=== PATIENT | female | born 1955 | race Caucasian/White ===

== ENCOUNTER → 2016-09-10 18:45 | Outpatient (CLI) | payer MEDICARE ==
[2014-12-14 13:02] VITALS: BMI 35.6
[~2016-09-10 18:45] MED LIST: ACIDOPHILUS LAC1 CAP PO; ADVAIR 250/501 DISK INH; DUONEB 2.5-0.5 M3 ML UPD; DURAGESIC1 PATCH .1; DURAGESIC1 PATCH .7 TRANSDERM; ELIQUIS2.5 MG PO; IPRAT-ALBUT 0.5-3 ML UPD; K-DUR20 MEQ PO; KEPPRA XR500 MG PO; LACTINEX GRANUL1 PCK PO; MUCINEX D1 TAB.SR . PO; NEXIUM40 MG PO; NORCO 10/325 TA1 TA1 PO; PERCOCET 10/3251 TA1 PO; SEROQUEL XR150 MG PO; SEROQUEL XR200 MG PO; SINGULAIR10 MG PO; TENORMIN25 MG PO; TRIGLIDE160 MG PO
== END | disposition home or self-care (01) ==
LOC: D.MAMMO 15:45
DX: Z12.31 Encounter for screening mammogram for malignant neoplasm of breast (principal)

== ENCOUNTER 2016-10-17 05:15 | Day surgery (SDC) | payer MEDICARE ==
[2016-10-15 14:50] LABS: BASOPHILS 0.4 % (0-2); EOSINOPHILS 1.5 % (0-7); HEMATOCRIT 45.4 % (36.0-48.0); HEMOGLOBIN 14.7 g/dL (12-16); IMMATURE GRANULOCYTES 0.2 % (0-5); LYMPHOCYTES 32.9 % (15-50); MCH 29.9 pg (26.0-34.0); MCHC 32.4 g/dL (31.0-37.0); MCV 92.3 fL (80.0-100.0); MEAN PLATELET VOLUME 9.8 fL (7.4-10.4); MONOCYTES 8.4 % (2-11); NEUTROPHILS 56.6 % (40-80); RBC 4.92 10x6/uL (4.00-5.40); RDW 14.3 % (11.5-14.5); WBC 10.2 10x3/uL (4.8-10.8)
[2016-10-15 14:56] LABS: PLATELET COUNT 434 10x3/uL (130-400)
[2016-10-15 15:02] LABS: CALC OSMOLALITY 289 mosm/kg (275-300); CALCIUM 8.9 mg/dL (8.5-10.1); CARBON DIOXIDE 30.7 mmol/L (21.0-32.0); CHLORIDE - SERUM 107 mmol/L (98-107); CREATININE - SERUM 0.8 mg/dL (0.6-1.3); POTASSIUM - SERUM 4.1 mmol/L (3.5-5.1); SODIUM 142 mmol/L (136-145); UREA NITROGEN 21 mg/dL (7-18); eGFR NON AFRICAN AMERICAN 77 mL/min (90-120)
[2016-10-15 15:03] LABS: GLUCOSE 173 mg/dL (74-106)
[~2016-10-17] VITALS: Ht 165.1 cm; Wt 104.3 kg
--- NOTE | ~2016-10-17 | OP ---
PATIENT NAME: ROSIO BENJAMIN MEDICAL RECORD: [id number] :51 LOCATION:D.OPS ADMISSION DATE: SURGEON: PETROS SERNA MD DATE OF OPERATION: 10/17/2016 PREOPERATIVE DIAGNOSES: 1. Ventral incisional hernia. 2. Asthma. 3. Gastroesophageal reflux disease. 4. Arthritis. POSTOPERATIVE DIAGNOSES: 1. Ventral incisional hernia. 2. Asthma. 3. Gastroesophageal reflux disease. 4. Arthritis. PROCEDURE: Open ventral hernia repair with 13.8 x 17.8 cm Ventrio hernia patch. SURGEON: Petros Serna MD REPORT OF PROCEDURE: The patient's abdomen was prepped and draped in sterile fashion. A longitudinal incision was made through the midline overlying the area of herniation. Electrocautery was used to dissect through the subcutaneous tissues and we soon encountered the hernia sac. As we dissected down to the fascia, it was noted that there are actually multiple hernia defects present with multiple areas of weakness visible throughout the upper midline incision. As we dissected out the largest one, we were able to enter the hernia sac and entered the abdominal cavity. We freed up the anterior attachments and was able to feel up and down the midline incision. We eventually just open up the fascial bridges that are reconnecting all these and then we encountered an approximately 12 cm area of hernias. A 13.8 x 17.8 cm Ventrio hernia patch was inserted and sutured down on all 4 sides using multiple interrupted 0 Prolenes. A total of 10 different areas were sutured up to the anterior abdominal wall. The patch appeared to lie in good position. We then closed the midline fascia longitudinally using running #1 looped PDS times 2. Some of the bites of this incorporated a bite of the mesh underneath. The subcutaneous tissues were then irrigated out thoroughly with normal saline. We then reapproximated the subcutaneous tissues with multiple interrupted 3-0 Vicryls and closed the skin with running subcutaneous 5-0 Monocryl. COMPLICATIONS: None. CONDITION: Stable. ANESTHESIA: General endotracheal and local. BLOOD LOSS: Minimal. TRANSINT:[id number] Voice Confirmation ID: [id number] DOCUMENT ID: [id number] OPERATIVE REPORT [id number] ROSIO BENJAMIN PETROS SERNA MD CC: HOMERO ORO M.D. and NORMA WALLIS MD [id number] DICTATION DATE: 10/18/16 1119 CARROT TIER: 10/18/16 1843 DEP SDC 10/17/16 [facility] 069 [facility], [id number]
[~2016-10-17 05:15] MED LIST changes: +KEPPRA500 MG PO; +ROBAXIN500 MG PO
[2016-10-17] MEDS ORDERED: HYDROCODONE-APA1 TAB PO (05:57)
[2016-10-17] MEDS ORDERED: TRAZODONE HCL150 MG PO (05:57)
[2016-10-17] MEDS ORDERED: PROAIR HFA8.5 GM INH (05:58)
[2016-10-17] MEDS ORDERED: PROTONIX40 MG PO (05:58)
[2016-10-17] MEDS ORDERED: SYMBICORT 16010.2 GM INH (05:59)
[2016-10-17 06:04] VITALS: BP 123/46; Ht 165.1 cm; Wt 104.3 kg
--- NOTE | 2016-10-17 08:24 | NUR ---
0748: PT STATED NO FAMILY PRESENT.
[2016-10-17] MEDS ORDERED: CYCLOBENZAPRINE10 MG PO (09:35)
--- NOTE | 2016-10-17 10:05 | NUR ---
PRE-OP O2 ON ROOM AIR 93. PT TRANSPORTED OUT OF PACU ON 4L 95%.
--- NOTE | 2016-10-17 15:46 | NUR ---
1430--PT VOIDS WITHOUT DIFFICULTY, PT UP TO DRESS AT THIS TIME. MAGGI RAINEY 1275--DISCHARGE INSTRUCTIONS GIVEN, PT VERBALIZES UNDERSTANDING. PT OFF UNIT VIA WC. MAGGI RAINEY
== END 2016-10-17 14:55 | disposition home or self-care (01) ==
LOC: D.OPS 05:15 → D.PAN 07:30 → D.OPS 14:55
PROVIDERS: Surgery
DX: K43.2 Incisional hernia without obstruction or gangrene (principal); J45.909 Unspecified asthma, uncomplicated; K21.9 Gastro-esophageal reflux disease without esophagitis; M19.90 Unspecified osteoarthritis, unspecified site

== ENCOUNTER 2018-01-20 08:00 | Outpatient (CLI) | payer MEDICARE ==
[~2018-01-20] VITALS: Ht 165.1 cm; Wt 104.5 kg
[~2018-01-20 08:00] MED LIST changes: +CYCLOBENZAPRINE10 MG PO; +HYDROCODONE-APA1 TAB PO; +PROAIR HFA8.5 GM INH; +PROTONIX40 MG PO; +SYMBICORT 16010.2 GM INH; +TRAZODONE HCL150 MG PO
[2018-01-20 08:20] LABS: BASOPHILS 0.4 % (0-2); EOSINOPHILS 0.9 % (0-7); HEMATOCRIT 42.7 % (36.0-48.0); HEMOGLOBIN 13.7 g/dL (12-16); IMMATURE GRANULOCYTES 0.2 % (0-5); LYMPHOCYTES 46.3 % (15-50); MCH 27.1 pg (26.0-34.0); MCHC 32.1 g/dL (31.0-37.0); MCV 84.4 fL (80.0-100.0); MEAN PLATELET VOLUME 9.3 fL (7.4-10.4); MONOCYTES 6.2 % (2-11); PLATELET COUNT 454 10x3/uL (130-400); RBC 5.06 10x6/uL (4.00-5.40); RDW 18.5 % (11.5-14.5); WBC 9.2 10x3/uL (4.8-10.8)
[2018-01-20 08:30] LABS: ANION GAP 9.2 mmol/L (8-16); CALCIUM 8.9 mg/dL (8.5-10.1); CARBON DIOXIDE 27.5 mmol/L (21.0-32.0); CREATININE - SERUM 0.9 mg/dL (0.6-1.3); POTASSIUM - SERUM 4.7 mmol/L (3.5-5.1)
[2018-01-20 09:02] LABS: APTT 24.8 SECONDS (22.8-39.4); INR 1.01 (0.85-1.17); PROTIME 12.7 SECONDS (11.6-15.0)
[2018-01-20 09:18] VITALS: BP 118/77; Ht 165.1 cm; Wt 104.5 kg
== END 2018-01-20 15:00 | disposition home or self-care (01) ==
LOC: D.SP 08:00
PROVIDERS: Radiology Vascular & Interventional Radiology
DX: D72.829 Elevated white blood cell count, unspecified (principal); Z01.812 Encounter for preprocedural laboratory examination

== ENCOUNTER 2018-03-03 07:22 | Outpatient (CLI) | payer MEDICARE ==
[~2018-03-03] VITALS: Ht 165.1 cm; Wt 112.7 kg
--- NOTE | ~2018-03-03 | HEMODYNAMI ---
PATIENT:ROSIO BENJAMIN MEDICAL RECORD: [id number] : 51 LOCATION:D.CAT ADMISSION DATE: 03/03/18 Generatedon:03/03/201810:19 Patient name: ROSIO BENJAMIN Patient #: [id number] SSN: : 1955 Date of study: 03/03/2018 Page: Of Hemodynamic Procedure Report Patient Data Patient Demographics Procedure consent was obtained First Name: ROSIO Gender: Female Last Name: CASSIDY : 1955 [facility] Initial: J Age: 62 year(s) Patient #: [id number] Race: Unknown Additional ID: [id number] Contact details [address]: [address] [place] [address] State: [place] City: [place] Zip code: [address] Admission Admission Data Admission Date: 03/03/2018 Admission Time: 7:22 Admit Source: Other Height (in.): 65 BSA: 2.14 (m2) Height (cm.): 165.1 BMI: 39.99 (kg/m2) Weight (lbs.): 240.31 Weight (kg.): 109 Procedure Procedure Types Cath Procedure Diagnostic Procedure LHC LHC w/Coronaries Procedure Description Procedure Date Procedure Date: 03/03/2018 Procedure Start Time: 10:07 Procedure End Time: 10:14 Procedure Staff Name Function Justin Perdue MD Performing Physician Silver Bowens RT Scrub Gino Tom RN Nurse Rohan Redd RT Station Tender Seth Moore RT Monitor Procedure Data Cath Procedure Fluoroscopy Diagnostic fluoroscopy Total fluoroscopy Time: 1.3 time: 1.3 min min Diagnostic fluoroscopy Total fluoroscopy dose: 180 dose: 180 mGy mGy Contrast Material Contrast Material Type Amount (ml) Isovue 300 39 Entry Location Entry Primary Successful Side Size Upsize Upsize Entry Closure Siu ccessful Closure Location (Fr) 1 (Fr) 2 (Fr) Remarks Device Remarks Radial Right 6 Fr Mechanical artery Short Compression Estimated blood loss: 10 ml Diagnostic catheters Device Type Used For End Catheter Placement DIAGNOSTIC [place] 110cm 5 Procedure Fr catheter ([id number]) Procedure Complications No complications Procedure Medications Medication Administration Route Dosage 0.9% NaCl I.V. 100 ml/hr Oxygen etCO2 Nasal cannula 2 l/min Heparin Flush Bag added to field 2 bags (1000units/500ml NS) Lidocaine 2% added to field 20 Radial Cocktail added to field 1 syringe (Verapomil 2mg/Nitro 400mcg/Heparin 1500units) Versed I.V. 2 mg Fentanyl I.V. 100 mcg Versed I.V. 2 mg Fentanyl I.V. 100 mcg Radial Cocktail I.A. 1 syringe (Verapomil 2mg/Nitro 400mcg/Heparin 1500units) Versed I.V. 1 mg Hemodynamics Rest BSA: 2.14 (m2) O2 Consumption: Estimated: 229.16 (ml/min) O2 Consumption indexed : Estimated:107.08 (ml/min/m) Heart Rate: 105 (bpm) Pressure Samples Time Site Value (mmHg) Purpose Heart Use Rate(bpm) 10:09 AO 73/59(66) Snapshot 106 Snapshots Pre Cath Intra NCS Post Cath Vital Signs Time Heart Resp SPO2 etCO2 NIBP (mmHg) Rhythm Pain Sedation Rate (ipm) (%) (mmHg) Status Level (bpm) 9:34:03 105 23 90 25.6 125/87(102) NSR 0 (11) 10(A) , No pain 9:38:07 105 14 92 25.6 126/81(101) NSR 0 (11) 10(A) , No pain 9:42:11 106 15 94 25.6 120/85(98) NSR 0 (11) 10(A) , No pain 9:46:16 107 11 96 31.7 125/82(98) NSR 0 (11) 10(A) , No pain 9:50:24 105 14 96 18.8 131/84(105) NSR 0 (11) 10(A) , No pain 9:55:27 106 16 96 24.9 135/76(100) NSR 0 (11) 10(A) , No pain 9:59:39 107 16 98 16.6 122/79(100) NSR 0 (11) 10(A) , No pain 10:03:47 105 17 96 16.6 140/85(106) NSR 0 (11) 10(A) , No pain 10:07:59 105 14 93 24.1 128/82(95) NSR 0 (11) 10(A) , No pain 10:12:03 118 12 89 35.5 108/71(84) NSR 0 (11) 10(A) , No pain Medications Time Medication Route Dose Verified Delivered Reason Notes Effectiveness by by 9:34:37 0.9% NaCl I.V. 100 Gino Gino Per ml/hr Vaishali Tom physician RN RN 9:34:47 Oxygen etCO2 2 l/min Gino Gino Per Nasal Vaishali Tom physician cannula RN RN 9:34:59 Heparin Flush added 2 bags Gino Gino used for Bag to Vaishali Tom procedure (1000units/500ml RN RN NS) 9:35:11 Lidocaine 2% added 20ml Gino Gino for local to vial Lorigan Vaishali anesthetic field RAINEY RN 9:35:29 Radial Cocktail added 1 Gino Gino used for (Verapomil to syringe Vaishali Tom procedure 2mg/Nitro field RAINEY RN 400mcg/Heparin 1500units) 10:06:09 Versed I.V. 2 mg Gino Gino for sedation Vaishali Tom RN RN 10:06:20 Fentanyl I.V. 100 mcg Gino Gino for sedation Vaishali Tom RN RN 10:07:36 Versed I.V. 2 mg Gino Gino for sedation Vaishali Tom RN RN 10:07:44 Fentanyl I.V. 100 mcg Gino Gino for sedation Vaishali Tom RN RN 10:08:35 Radial Cocktail I.A. 1 Gino Justin for (Verapomil syringe Vaishali Perdue MD vasodilation 2mg/Nitro RN 400mcg/Heparin 1500units) 10:08:48 Versed I.V. 1 mg Gino Gino for sedation Vaishali Tom RN sweep press operator Log Time Note 9:02:14 Informed consent obtained and on chart 9:02:17 Admit Source: Other 9:02:30 Diagnostic Cath status Elective 9:02:31 Time tracking: Regular hours (M-F 7:00 - 5:00) 9:02:34 Plan of Care:Hemodynamics will remain stable., Cardiac rhythm will remain stable., Comfort level will be maintained., Respiratory function will remain adequate., Patient/ family verbilizes understanding of procedure., Procedure tolerated without complication., Recovers from procedure without complications.. 9:02:43 H&P Date Dictated: 03/02/2018 Within 30 days and on chart., H&P Addendum completed by physician on day of procedure. (MUST COMPLETE FOR ALL OUTPATIENTS). 9:15:08 Patient received from Pre/Post Procedure Room to CCL 3 Alert and oriented. Tansferred to table in Supine position. 9:15:10 Warm blankets applied, and heidi hugger turned on for patient comfort. 9:15:10 Correct patient and procedure confirmed by team. 9:15:12 ECG and BP/O2 sat monitors applied to patient. 9:16:50 Seth RIVERA(R) sent for patient. Start room use. 9:33:06 Vital chart was started 9:34:37 0.9% NaCl 100 ml/hr I.V. was administered by Gino Tom RN; Per physician; 9:34:47 Oxygen 2 l/min etCO2 Nasal cannula was administered by Gino Tom RN; Per physician; 9:34:59 Heparin Flush Bag (1000units/500ml NS) 2 bags added to field was administered by Gino Tom RN; used for procedure; 9:35:11 Lidocaine 2% 20ml vial added to field was administered by Gino Tom RN; for local anesthetic; 9:35:29 Radial Cocktail (Verapomil 2mg/Nitro 400mcg/Heparin 1500units) 1 syringe added to field was administered by Gino Tom RN; used for procedure; 9:40:15 Baseline sample Acquired. 9:40:19 Rhythm: sinus tachycardia 9:40:20 Full Disclosure recording started 9:40:21 Pre-procedure instructions explained to patient. 9:40:22 Pre-op teaching completed and patient verbalized understanding. 9:40:24 Family unavailable. 9:40:25 Patient NPO since Midnight. 9:40:27 Is the patient allergic to Iodine/contrast media? No. 9:40:29 Is patient on blood thinner?No 9:40:31 Patient diabetic? No. 9:44:26 Previous problem with sedation/anesthesia? No ? 9:44:28 Snore? Yes 9:44:29 Sleep apnea? Yes 9:44:30 Deviated septum? No 9:44:30 Opens mouth fully? Yes 9:44:31 Sticks out tongue? Yes 9:44:36 Airway obstruction? Yes Asthma 9:44:42 Dentures? Yes partial out 9:44:46 Pre procedure: right dorsailis pedis pulse 1+ Palpable, but thready & weak; easily obliterated 9:44:49 Modified Aman's test Ulnar < 7 seconds 9:44:51 Patient pain scale 0/10 ?. 9:44:55 IV patent on arrival in left forearm with 0.9% NaCl at [facility]. 9:44:56 Lab results completed and on chart. 9:44:59 Right Radial & Right Groin area was prepped with chlora-prep and draped in sterile fashion 9:45:00 Alarms reviewed by R. N. 9:45:01 Sharps counted by scrub and verified by R.N. 9:45:13 Use device set Radial Dx or PCI 9:45:16 ACIST Manifold (36436) opened to sterile field. 9:45:16 Tegaderm 4 x 4 (1626W) opened to sterile field. 9:45:19 ACIST Hand Control (55143) opened to sterile field. 9:45:20 ACIST Syringe (13818) opened to sterile field. 9:45:21 Medline Cath Pack ([id number]) opened to sterile field. 9:45:21 Bag Decanter (2002S) opened to sterile field. 9:45:21 DIAGNOSTIC WIRE .035 260cm J wire (280828) opened to sterile field. 9:45:22 MBrace Wrist Support ([id number]) opened to sterile field. 9:45:23 SHEATH 6Fr Prelude Radial ([id number]) opened to sterile field. 9:47:15 Patient Height : 65 inches 9:47:22 Patient Weight : 240.31 lbs 10:05:35 --------ALL STOP TIME OUT------ 10:05:36 Final Timeout: patient, procedure, and site verified with staff and physician. All members of the team are in agreement. 10:05:38 Right Radial & Right Groin site verified by team. 10:05:40 Physical assessment completed. ASA score P 2 - A patient with mild systemic disease as per Justin Perdue MD. 10:05:43 Sedation plan: IV Moderate Sedation Medication:Versed, Fentanyl 10:06:09 Versed 2 mg I.V. was administered by Gino Tom RN; for sedation; 10:06:20 Fentanyl 100 mcg I.V. was administered by Gino Tom RN; for sedation; 10:07:04 Procedure started. 10:07:09 Local anesthetic to right radial artery with Lidocaine 2% by Justin Perdue MD.INITIAL ACCESS ONLY 10:07:36 Versed 2 mg I.V. was administered by Gino Tom RN; for sedation; 10:07:44 Fentanyl 100 mcg I.V. was administered by Gino Tom RN; for sedation; 10:08:35 Radial Cocktail (Verapomil 2mg/Nitro 400mcg/Heparin 1500units) 1 syringe I.A. was administered by Justin Perdue MD; for vasodilation; 10:08:36 A 6 Fr Short sheath was inserted into the Right Radial artery 10:08:48 Versed 1 mg I.V. was administered by Gino Tom RN; for sedation; 10::57 A DIAGNOSTIC [place] 110cm 5 Fr catheter (393293) was advanced over the wire and used for Procedure. 10:09:25 LV angiography performed. 10:09:26 LV gram done using MAURICE 10:09:40 EF : 55 % 10::56 Injector settings: Ml/sec: 7, Volume: 15, 10:10:09 LCA angiography performed. 10:11:13 RCA angiography performed. 10:11:16 Catheter removed. 10:11:54 TR BAND Standard ([id number]) opened to sterile field. 10:12:14 Sheath removed intact; hemostasis achieved with Mechanical Compression to the Right Radial artery. 10:12:17 Procedure ended.(Physican Out) 10:12:39 Fluoroscopy time 01.30 minutes. 10:12:45 Fluoroscopy dose: 180 mGy 10:12:45 Flurop Dose total: 180 10:12:57 Contrast amount:Isovue 300 39ml. 10:12:58 Sharps counted by scrub and verified by R.N. 10:13:00 Insertion/operative site no bleeding no hematoma. 10:13:03 TR band inflated with 10cc of air. 10:13:06 Post Procedure Pulses reassessed and unchanged 10:13:09 Post-procedure physical assessment completed. ASA score P 2 - A patient with mild systemic disease as per Justin Perdue MD. 10:13:11 Post procedure rhythm: unchanged. 10:13:14 Estimated blood loss: 10 ml 10:13:18 Post procedure instruction explained to patient.Patient verbalizes understanding. 10:13:18 Patient needs reinforcement of post procedure teaching. 10:13:24 Procedure and supply charges have been captured, reviewed, submitted and are correct. 10:13:26 Procedure Complication : No complications 10:14:41 Vital chart was stopped 10:14:42 See physician's report for complete and final results. 10:14:46 Report given to Pre/Post Procedure Room. 10:14:49 Patient transfered to Pre/Post Procedure Room with Stretcher. 10:14:52 Procedure ended. 10:14:52 Full Disclosure recording stopped 10:14:55 End room use (Document Last) Device Usage Item Name Manufacture Quantity Catalog Number Hospital Part Current M inimal Lot# / Charge Number Stock Stock Serial# Code ACIST Manifold Acist 1 90229 233339 117461 028694 5 (76007) [employer] Tegaderm 4 x 4 3M 1 1626W 864486 517658 931539 5 (1626W) ACIST Hand Acist 1 05252 281024 136120 222890 5 Control (19783) [employer] Inc ACIST Syringe Acist 1 30268 116982 431357 293066 2 0 (11560) [employer] Inc Medline Cath Cardinal 1 [id number] 493504 58929 318426 5 Pack Health ([id number]) Bag Decanter Microtek 1 2001S 693503 01382 888370 5 (2001S) Medical Inc. DIAGNOSTIC WIRE [facility] [place] 1 889841 431325 351634 335958 3 0 .035 260cm J wire (601457) MBrace Wrist Advanced 1 140-0250-00 484863 81168 432547 5 Support Vascular ([id number]) Dynamics SHEATH 6Fr Merit 1 [id number] 669531 415396 137877 5 Prelude Radial Medical ([id number]) DIAGNOSTIC Terumo 1 08-6716 317671 445432 774906 5 [place] 110cm 5 Fr catheter (554519) TR BAND Terumo 1 [id number] 468837 241402 187745 4 0 Standard ([id number]) Signature Audit Aguila Stage Time Signature Unsigned Intra-Procedure 03/03/2018 Seth Moore 10:19:13 AM RT(R) Signatures Monitor : Seth Moore RT Signature : Date : Time : [address] [id number] [place] [address]
--- NOTE | ~2018-03-03 | OP ---
PATIENT NAME: ROSIO BENJAMIN MEDICAL RECORD: [id number] :51 LOCATION:D.CAT ADMISSION DATE: SURGEON: JESSENIA GURROLA MD DATE OF OPERATION: 03/03/2018 PROCEDURES: 1. Left heart catheterization. 2. Selective coronary angiography. 3. Left ventriculogram. INDICATION: Chest pain compatible with angina, tachycardia, shortness of breath. PROCEDURE IN DETAIL: After informed consent was obtained and after a detailed description of risks, benefits as well as alternative therapies, the patient elected to proceed with angiogram and heart catheterization. The right radial area was prepped and draped in normal sterile fashion. Right radial artery was cannulated via modified Seldinger technique with placement of 5-Khmer sheath. All catheters exchanged through this sheath. FINDINGS: Left ventriculogram was performed in standard 30-degree MAURICE view, reveals good cardiac wall motion throughout all segments. Overall ejection fraction estimated 60%. SELECTIVE CORONARY ANGIOGRAPHY: Left main, left anterior descending, left circumflex, right coronary are all smooth-walled vessels with no angiographic evidence of coronary artery disease. OVERALL IMPRESSION: 1. No angiographic evidence of coronary artery disease. 2. Normal left heart pressures. 3. Normal left ventricular systolic function. Chest pain is noncardiac in etiology. Center medical management on treatment of the tachycardia and hypertension. TRANSINT:[id number] Voice Confirmation ID: [id number] DOCUMENT ID: [id number] JESSENIA GURROLA MD at 0923 CC: [id number] DICTATION DATE: 03/03/18 1018 EMBROIDERY ASSISTANT: 03/03/18 1238 DEP CLI 03/04/[address] [address]
[2018-03-03] MEDS ORDERED: NORCO 7.5/325 T1 TA1 PO (07:58)
[2018-03-03] MEDS ORDERED: GLUCOPHAGE500 MG PO (08:01)
[2018-03-03] MEDS ORDERED: LISINOPRIL10 MG PO (08:02)
[2018-03-03 08:17] VITALS: BP 106/61; BMI 38.3
[2018-03-03 08:45] LABS: BASOPHILS 0.4 % (0-2); EOSINOPHILS 1.3 % (0-7); HEMATOCRIT 38.9 % (36.0-48.0); HEMOGLOBIN 12.5 g/dL (12-16); IMMATURE GRANULOCYTES 0.1 % (0-5); LYMPHOCYTES 49.8 % (15-50); MCH 27.5 pg (26.0-34.0); MCHC 32.1 g/dL (31.0-37.0); MCV 85.5 fL (80.0-100.0); MEAN PLATELET VOLUME 9.7 fL (7.4-10.4); MONOCYTES 8.8 % (2-11); NEUTROPHILS 39.6 % (40-80); RBC 4.55 10x6/uL (4.00-5.40); RDW 16.7 % (11.5-14.5); WBC 9.5 10x3/uL (4.8-10.8)
[2018-03-03 09:05] LABS: PLATELET COUNT 639 10x3/uL (130-400)
[2018-03-03 09:29] LABS: ANION GAP 14.8 mmol/L (8-16); CALCIUM 9.8 mg/dL (8.5-10.1); CARBON DIOXIDE 25.7 mmol/L (21.0-32.0); CREATININE - SERUM 0.9 mg/dL (0.6-1.3)
[2018-03-03 09:34] LABS: POTASSIUM - SERUM 5.5 mmol/L (3.5-5.1)
[2018-03-03 15:54] VITALS: BP 134/85
[2018-03-03 18:13] VITALS: Ht 165.1 cm; Wt 112.7 kg
[2018-03-03 22:50] VITALS: BP 125/75
[2018-03-04 01:58] VITALS: BP 103/54
[2018-03-04 06:15] VITALS: BP 117/65
[2018-03-04] MEDS ORDERED: METOPROLOL TART50 MG PO (09:19)
[2018-03-04 09:39] VITALS: BP 134/68
== END 2018-03-04 10:35 | disposition home or self-care (01) ==
LOC: D.CATH 07:22 → D.M2 12:43 → D.CATH 03-04 10:35
PROVIDERS: Internal Medicine Interventional Cardiology
DX: R07.89 Other chest pain (principal); I10 Essential (primary) hypertension; R00.0 Tachycardia, unspecified; Z01.812 Encounter for preprocedural laboratory examination

== ENCOUNTER 2018-05-20 14:02 | Emergency (ER) | payer MEDICARE ==
[~2018-05-20] VITALS: Ht 165.1 cm; Wt 109.1 kg
[~2018-05-20 14:02] MED LIST changes: +GLUCOPHAGE500 MG PO; +LISINOPRIL10 MG PO; +METOPROLOL TART50 MG PO; +NORCO 7.5/325 T1 TA1 PO
[2018-05-20 14:27] VITALS: Ht 165.1 cm; Wt 109.1 kg
[2018-05-20 14:58] LABS: BASOPHILS 0.5 % (0-2); HEMATOCRIT 42.8 % (36.0-48.0); HEMOGLOBIN 13.5 g/dL (12-16); IMMATURE GRANULOCYTES 0.3 % (0-5); LYMPHOCYTES 28.5 % (15-50); MCH 27.1 pg (26.0-34.0); MCHC 31.5 g/dL (31.0-37.0); MCV 85.9 fL (80.0-100.0); MEAN PLATELET VOLUME 10.2 fL (7.4-10.4); MONOCYTES 7.4 % (2-11); NEUTROPHILS 62.3 % (40-80); RBC 4.98 10x6/uL (4.00-5.40); WBC 11.7 10x3/uL (4.8-10.8)
[2018-05-20 15:20] LABS: ALKALINE PHOSPHATASE 34 U/L (46-116); ALT (SGPT) 16 U/L (10-68); BILIRUBIN - TOTAL 0.29 mg/dL (0.2-1.3); CALC OSMOLALITY 284 mosm/kg (275-300); CALCIUM 8.9 mg/dL (8.5-10.1); CARBON DIOXIDE 30.3 mmol/L (21.0-32.0); CHLORIDE - SERUM 103 mmol/L (98-107); CREATININE - SERUM 0.8 mg/dL (0.6-1.3); GLUCOSE 126 mg/dL (74-106); SODIUM 141 mmol/L (136-145); UREA NITROGEN 18 mg/dL (7-18); eGFR NON AFRICAN AMERICAN 76 mL/min (90-120)
[2018-05-20 15:23] LABS: PLATELET COUNT 495 10x3/uL (130-400)
[2018-05-20 15:28] LABS: AMYLASE - SERUM 26 U/L (25-115); LIPASE 103 U/L (73-393)
[2018-05-20 15:31] LABS: TROPONIN-I < 0.017 ng/mL (0.000-0.060)
[2018-05-20 18:07] LABS: APPEARANCE CLEAR (CLEAR); BILIRUBIN NEGATIVE (NEGATIVE); COLOR YELLOW (YELLOW); GLUCOSE NEGATIVE (NEGATIVE); KETONE NEGATIVE (NEGATIVE); NITRITE NEGATIVE (NEGATIVE); PROTEIN NEGATIVE (NEGATIVE); SPECIFIC GRAVITY 1.015 (1.005-1.020); UROBILINOGEN NORMAL (NORMAL)
[2018-05-20 18:15] LABS: BACTERIA MANY /hpf (NONE SEEN); EPITHELIAL CELLS 0-5 /hpf (0-5); RED CELLS - URINE 0-5 /hpf (0-5)
[2018-05-20] MEDS ORDERED: ZOFRAN ODT4 MG/UDTAB PO (18:18)
[2018-05-20 19:22] VITALS: BP 127/75
== END 2018-05-20 19:22 | disposition home or self-care (01) ==
LOC: D.ER 14:02
PROVIDERS: Family Medicine
DX: R11.2 Nausea with vomiting, unspecified (principal); R53.81 Other malaise; R53.83 Other fatigue; C95.91 Leukemia, unspecified, in remission; G40.909 Epilepsy, unspecified, not intractable, without status epilepticus; E11.9 Type 2 diabetes mellitus without complications; I10 Essential (primary) hypertension

== ENCOUNTER 2018-05-30 14:32 | Emergency (ER) | payer MEDICARE ==
[~2018-05-30] VITALS: Ht 165.1 cm; Wt 104.5 kg
[~2018-05-30 14:32] MED LIST changes: +ZOFRAN ODT4 MG/UDTAB PO
[2018-05-30 14:38] VITALS: Ht 165.1 cm; Wt 104.5 kg
[2018-05-30 14:57] LABS: BASOPHILS 0.5 % (0-2); HEMOGLOBIN 13.9 g/dL (12-16); LYMPHOCYTES 39.5 % (15-50); MCH 26.8 pg (26.0-34.0); MCHC 31.6 g/dL (31.0-37.0); MCV 84.8 fL (80.0-100.0); MEAN PLATELET VOLUME 9.8 fL (7.4-10.4); MONOCYTES 9.3 % (2-11); NEUTROPHILS 48.7 % (40-80); RBC 5.19 10x6/uL (4.00-5.40); RDW 15.1 % (11.5-14.5); WBC 9.5 10x3/uL (4.8-10.8)
[2018-05-30 15:09] LABS: ALBUMIN 3.4 g/dL (3.4-5.0); ANION GAP 16.7 mmol/L (8-16); BILIRUBIN - TOTAL 0.34 mg/dL (0.2-1.3); CALCIUM 9.8 mg/dL (8.5-10.1); CARBON DIOXIDE 27.5 mmol/L (21.0-32.0); POTASSIUM - SERUM 4.2 mmol/L (3.5-5.1); PROTEIN - SERUM 7.6 g/dL (6.4-8.2)
[2018-05-30 15:10] LABS: PLATELET COUNT 651 10x3/uL (130-400)
[2018-05-30 18:48] LABS: APPEARANCE CLEAR (CLEAR); BILIRUBIN NEGATIVE (NEGATIVE); COLOR YELLOW (YELLOW); GLUCOSE NEGATIVE (NEGATIVE); KETONE NEGATIVE (NEGATIVE); NITRITE NEGATIVE (NEGATIVE); PROTEIN NEGATIVE (NEGATIVE); SPECIFIC GRAVITY 1.015 (1.005-1.020); UROBILINOGEN NORMAL (NORMAL)
[2018-05-30 18:49] LABS: RED CELLS - URINE RARE /hpf (0-5)
[2018-05-30] MEDS ORDERED: MACROBID100 MG PO (20:03)
[2018-05-30] MEDS ORDERED: ZOFRAN4 MG PO (20:03)
[2018-05-30 20:18] VITALS: BP 123/65
== END 2018-05-30 20:18 | disposition home or self-care (01) ==
LOC: D.ER 14:32
PROVIDERS: Emergency Medicine
DX: N39.0 Urinary tract infection, site not specified (principal); R19.7 Diarrhea, unspecified; E11.9 Type 2 diabetes mellitus without complications

== ENCOUNTER → 2018-06-30 17:19 | Outpatient (CLI) | payer MEDICARE ==
[2018-05-30 14:38] VITALS: BMI 38.3
[~2018-06-30 17:19] MED LIST changes: +LEVAQUIN750 MG PO; +MACROBID100 MG PO; +PERCOCET 10-321 EAC1 PO; +TOPROL XL50 MG PO; +ZOFRAN4 MG PO
== END | disposition home or self-care (01) ==
LOC: D.LABREF 17:19
DX: M19.012 Primary osteoarthritis, left shoulder (principal); Z11.8 Encounter for screening for other infectious and parasitic diseases

== ENCOUNTER 2018-07-02 09:32 | Inpatient (IN) | payer MEDICARE ==
[~2018-07-02] VITALS: Ht 165.1 cm; Wt 109.1 kg
[~2018-07-02 09:32] MED LIST changes: -LEVAQUIN750 MG PO; -PERCOCET 10-321 EAC1 PO; -TOPROL XL50 MG PO
[2018-07-15] MEDS ORDERED: LISINOPRIL10 MG PO (14:33)
[2018-07-15] MEDS ORDERED: TOPROL XL50 MG PO (14:34)
[2018-07-15] MEDS ORDERED: METOPROLOL TART50 MG PO (14:46)
[2018-07-17 09:20] LABS: BASOPHILS 0.1 % (0-2); EOSINOPHILS 0 % (0-7); HEMATOCRIT 39.6 % (36.0-48.0); HEMOGLOBIN 12.3 g/dL (12-16); IMMATURE GRANULOCYTES 0.2 % (0-5); LYMPHOCYTES 24.4 % (15-50); MCH 25.9 pg (26.0-34.0); MCHC 31.1 g/dL (31.0-37.0); MCV 83.5 fL (80.0-100.0); MONOCYTES 10.4 % (2-11); NEUTROPHILS 64.9 % (40-80); PLATELET COUNT 443 10x3/uL (130-400); RBC 4.74 10x6/uL (4.00-5.40); RDW 16.5 % (11.5-14.5); WBC 12.2 10x3/uL (4.8-10.8)
[2018-07-17 09:27] LABS: APTT 26.6 SECONDS (22.8-39.4); CALC OSMOLALITY 284 mosm/kg (275-300); CARBON DIOXIDE 28.8 mmol/L (21.0-32.0); CHLORIDE - SERUM 104 mmol/L (98-107); CREATININE - SERUM 0.8 mg/dL (0.6-1.3); INR 1.08 (0.85-1.17); POTASSIUM - SERUM 4.5 mmol/L (3.5-5.1); PROTIME 13.5 SECONDS (11.6-15.0); SODIUM 141 mmol/L (136-145); UREA NITROGEN 23 mg/dL (7-18); eGFR NON AFRICAN AMERICAN 76 mL/min (90-120)
[2018-07-17 09:28] LABS: GLUCOSE 95 mg/dL (74-106)
[2018-07-17 14:21] LABS: APPEARANCE HAZY (CLEAR); BILIRUBIN NEGATIVE (NEGATIVE); COLOR YELLOW (YELLOW); GLUCOSE NEGATIVE (NEGATIVE); KETONE NEGATIVE (NEGATIVE); NITRITE NEGATIVE (NEGATIVE); PH 5.5 (5.0-6.0); PROTEIN NEGATIVE (NEGATIVE); SPECIFIC GRAVITY 1.025 (1.005-1.020); UROBILINOGEN NORMAL (NORMAL)
[2018-07-17 14:26] LABS: BACTERIA MODERATE /hpf (NONE SEEN); CALCIUM OXALATE CRYSTALS >50 /hpf (NONE SEEN); EPITHELIAL CELLS OCC /hpf (0-5); RED CELLS - URINE RARE /hpf (0-5)
[2018-07-20 15:07] VITALS: BP 133/87; BMI 42.7
--- NOTE | 2018-07-20 21:20 | NUR ---
RECIEVED TO FLOOR, DENIES PAIN AT THIS TIME. PT REQUESTS A COKE AND SOME FOOD. ABLE TO MOVE EXTREMETIES, BUT DENIES ADEQUATE FEELING. STATES LAST BE WAS 07/19/18. WILL CONTINUE TO MONITOR.
[2018-07-20 21:24] VITALS: BP 118/82
[2018-07-21] VITALS (7 sets, daily range): BP systolic 108–157; BP diastolic 64–84; Ht 165.1 cm; Wt 109.1 kg
--- NOTE | 2018-07-21 04:06 | NUR ---
RESTING IN BED RESPRATIONS EVEN AND UNLABORD CALL LIGHT IN REACH NO S/S OF DISTRESS CHECKED OFTEN FOR NEEDS AND SAFETY.
--- NOTE | 2018-07-21 04:29 | NUR ---
IV DRESSING CHANGED. FLUSHES EASILY, W/O COMPLAINTS. DENIES NEEDS AT THIS TIME.
[2018-07-21 06:46] LABS: HEMATOCRIT 36.8 % (36.0-48.0); HEMOGLOBIN 11.4 g/dL (12-16); MCH 26.4 pg (26.0-34.0); MCV 85.2 fL (80.0-100.0); MEAN PLATELET VOLUME 10.2 fL (7.4-10.4); RBC 4.32 10x6/uL (4.00-5.40); RDW 16.8 % (11.5-14.5); WBC 13.1 10x3/uL (4.8-10.8)
--- NOTE | 2018-07-21 11:20 | NUR ---
PT SITTING UP IN CHAIR AT BEDSIDE. REPORTS PAIN 3/10 AT THIS TIME. DENIES FURTHER NEEDS AT THIS TIME. CL WITHIN REACH. ENCOURAGED TO CALL WITH NEEDS. WILL CONTINUE TO MONITOR.
[2018-07-22 01:33] VITALS: BP 148/74
[2018-07-22 04:50] LABS: HEMOGLOBIN 11.8 g/dL (12-16); MCHC 31.1 g/dL (31.0-37.0); MCV 83.9 fL (80.0-100.0); MEAN PLATELET VOLUME 10.4 fL (7.4-10.4); RBC 4.53 10x6/uL (4.00-5.40); RDW 16.9 % (11.5-14.5); WBC 13.9 10x3/uL (4.8-10.8)
[2018-07-22 06:05] VITALS: BP 124/73
--- NOTE | 2018-07-22 07:15 | NUR ---
REC'D IN WALKING ROUND AWAKE AND ALERT. RESP EVEN AND UNLABORED WITH NO DISTRESS NOTED. CAN EXPRESS NEEDS AND WANTS WITH NO C/O NOTED OR VOICED. ASSESSMENT COMPLETED. SLING NOTED TO RIGHT ARM. C/L IN REACH AT BEDSIDE.
[2018-07-22 08:26] VITALS: BP 172/71
[2018-07-22] MEDS ORDERED: PERCOCET 10-321 EAC1 PO (08:55)
--- NOTE | 2018-07-22 09:44 | NUR ---
PT WAS MEDICATE WITH NORCO FOR C/O LEFT SHOULDER PAIN MEDICATED WITH NORCO PER ORDERS. C/L IN REACH AT BEDSIDE
[2018-07-22] MEDS ORDERED: LEVAQUIN750 MG PO (10:44)
--- NOTE | 2018-07-22 11:31 | MORECARE ---
CASE MANAGEMENT DISCHARGE SUMMARY PATIENT: ROSIO BENJAMIN UNIT: [id number] ADM DATE: 07/20/18 AGE: 62 : [birth year] SEX: F ROOM/BED: D.2208 AUTHOR: ADAMS FERRERA PHYSICIAN: REFERRING PHYSICIAN: MANUEL CORRIGAN MD DATE OF SERVICE: 07/22/18 Discharge Plan Patient Name: ROSIO BENJAMIN [facility] [facility] 1955 Planned Disposition: Home with Home Health Anticipated Discharge Date: Discharge Date: Expected LOS: Initial Reviewer: [email or web address] Initial Review Date: 07/20/2018 Generated: 07/22/18 12:31 pm Patient Name: ROSIO BENJAMIN Page [id number] at 1131 All edits/amendments must be made on the electronic document DICTATION DATE: 07/22/18 113 ATMOSPHERIC CHEMIST: MATHEW 07/22/18 1130 RPT#: [id number] DC DATE: STATUS: ADM IN [facility] [address] [place] [address] END OF REPORT
--- NOTE | 2018-07-22 11:45 | MORECARE ---
CASE MANAGEMENT DISCHARGE SUMMARY PATIENT: ROSIO BENJAMIN UNIT: [id number] ADM DATE: 07/20/18 AGE: 62 : 53 SEX: F ROOM/BED: D.2207 AUTHOR: MAISHA,DOC PHYSICIAN: REFERRING PHYSICIAN: MANUEL CORRIGAN MD DATE OF SERVICE: 07/22/18 Discharge Plan Patient Name: ROSIO BENJAMIN Facility: [facility]:[place] : 1955 Planned Disposition: Home with Home Health Anticipated Discharge Date: Discharge Date: Expected LOS: Initial Reviewer: [email or web address] Initial Review Date: 07/20/2018 Generated: 07/22/18 12:44 pm Comments DCP- Discharge Planning Updated by [email or web address]: Mary Gilliam on 07/22/18 10:[address] Patient Name: ROSIO BENJAMIN Admission Status: Elective Accout number: [id number] Admission Date: 07-20-2018 : 1955 Admission Diagnosis: Attending: MANUEL CORRIGAN Current LOS: 2 Anticipated DC Date: Planned Disposition: Home with Home Health Primary Insurance: MEDICARE A & B Discharge Planning Comments: CM met with patient to complete initial dc planning assessment. CM educated patient on the CM role and verbal consent given by patient to complete assessment. Patient lives at home, where she is independent with her care. At discharge patient plans to return home and feels this is a safe discharge. CM discussed availability of home health, rehab services, and medical equipment. Alvino her cousin will be the one to drive her home. She will be set up with [employer], ABDON signed and placed in chart. Patient has a grabber, cane, walker at home. Patient denied known discharge needs at this time. CM will continue to follow and will assist as needed with dc plans/needs. Certified Nursing Assistant Instructor: Mary Gilliam DCPIA - Discharge Planning Initial Assessment Updated by [email or web address]: Mary Gilliam on 07/22/18 11:31 am * Is the patient Alert and Oriented? Yes * How many steps to enter\exit or inside your home? * PCP [facility] * Pharmacy [facility] * Preadmission Environment Home Alone * ADLs Independent * Equipment Cane Other Walker * Other Equipment GRABBER * List name and contact numbers for known caregivers / representatives who currently or will assist patient after discharge: MILENA TAPIA [phone] * Verbal permission to speak to the caregivers and representatives has been obtained from the patient. N/A * Community resources currently utilized None * Additional services required to return to the preadmission environment? Yes * Can the patient safely return to the preadmission environment? Yes * Has this patient been hospitalized within the prior 30 days at any hospital? No Last DP export: 07/22/18 10:31 a Patient Name: ROSIO BENJAMIN Page 41115 at 1145 All edits/amendments must be made on the electronic document DICTATION DATE: 07/22/18 114 JELLY FILTER TENDER: MATHEW 07/22/18 1144 RPT#: [id number] DC DATE: STATUS: ADM IN [facility] [address] [place] [address] END OF REPORT
[2018-07-22 12:39] VITALS: BP 129/63
--- NOTE | 2018-07-22 12:48 | NUR ---
DC HOME AT THIS TIME WITH UNDERSTANDING OF DC ORDERS. IV DC. FAMILY AT BEDSIDE.NO C/O NOTED OR VOICED. C/L IN REACH AT BEDSIDE.
--- NOTE | 2018-07-22 17:50 | MORECARE ---
CASE MANAGEMENT DISCHARGE SUMMARY PATIENT: ROSIO BENJAMIN UNIT: [id number] ADM DATE: 07/20/18 AGE: 62 : 51 SEX: F ROOM/BED: D.2201 AUTHOR: MAISHA,DOC PHYSICIAN: REFERRING PHYSICIAN: MANUEL CORRIGAN MD DATE OF SERVICE: 07/22/18 Discharge Plan Patient Name: ROSIO BENJAMIN Facility: [facility]:[place] : 1955 Planned Disposition: Home with Home Health Anticipated Discharge Date: Discharge Date: 07/22/2018 Expected LOS: 0 Initial Reviewer: [email or web address] Initial Review Date: 07/20/2018 Generated: 07/22/18 6:50 pm Comments DCP- Discharge Planning Updated by [email or web address]: Mary Gilliam on 07/22/18 10:[address] Patient Name: ROSIO BENJAMIN Admission Status: Elective Accout number: [id number] Admission Date: 07-20-2018 : 1955 Admission Diagnosis: Attending: MANUEL CORRIGAN Current LOS: 2 Anticipated DC Date: Planned Disposition: Home with Home Health Primary Insurance: MEDICARE A & B Discharge Planning Comments: CM met with patient to complete initial dc planning assessment. CM educated patient on the CM role and verbal consent given by patient to complete assessment. Patient lives at home, where she is independent with her care. At discharge patient plans to return home and feels this is a safe discharge. CM discussed availability of home health, rehab services, and medical equipment. Alvino her cousin will be the one to drive her home. She will be set up with [employer], ABDON signed and placed in chart. Patient has a grabber, cane, walker at home. Patient denied known discharge needs at this time. CM will continue to follow and will assist as needed with dc plans/needs. Glass Toughening Operator: Mary Gilliam DCPIA - Discharge Planning Initial Assessment Updated by [email or web address]: Mayr Gilliam on 07/22/18 11:31 am * Is the patient Alert and Oriented? Yes * How many steps to enter\exit or inside your home? * PCP [facility] * Pharmacy [facility] * Preadmission Environment Home Alone * ADLs Independent * Equipment Cane Other Walker * Other Equipment GRABBER * List name and contact numbers for known caregivers / representatives who currently or will assist patient after discharge: MILENA TAPIA [phone] * Verbal permission to speak to the caregivers and representatives has been obtained from the patient. N/A * Community resources currently utilized None * Additional services required to return to the preadmission environment? Yes * Can the patient safely return to the preadmission environment? Yes * Has this patient been hospitalized within the prior 30 days at any hospital? No Last DP export: 07/22/18 10:45 a Patient Name: ROSIO BENJAMIN Page 09384 at 1750 All edits/amendments must be made on the electronic document DICTATION DATE: 07/22/181748 COATER SLATE: MATHEW 07/22/181748 RPT#: [id number] DC DATE:07/22/18 STATUS: DIS IN [facility] [address] [place] [address] END OF REPORT
--- NOTE | 2018-07-27 10:47 | OP ---
PATIENT NAME: ROSIO BENJAMIN MEDICAL RECORD: [id number] :[birth year] LOCATION:D.[facility] [place] ADMISSION DATE:07/20/18 SURGEON: MANUEL CORRIGAN MD DATE OF OPERATION: 07/20/2018 PREOPERATIVE DIAGNOSIS: Degenerative arthritis of the left shoulder. POSTOPERATIVE DIAGNOSIS: Degenerative arthritis of the left shoulder. PROCEDURE: Left total shoulder arthroplasty. SURGEON: Manuel Corrigan MD ELECTRONICS PROCESSING SUPERVISOR: Tristan Aguero. INTRAOPERATIVE COMPLICATIONS: None. SUMMARY OF PATHOLOGIC FINDINGS: The patient had extensive glenohumeral arthrosis. IMPLANTS USED: Arthrex Univers VaultLock glenoid size medium, Arthrex Univers Warroad stem size 10, and Arthrex Univers humeral head size 46 x 18. OPERATIVE SUMMARY IN DETAIL: After obtaining the appropriate preoperative orthopedic surgery consent as well as anesthetic consultation, evaluation and clearance, the patient was brought to the operating room and placed on the operating table in supine position. After general laryngeal mask airway was administered, the patient was placed in the beach chair position. All pressure points were well padded. She was held firmly to the operating table using the vacuum pack suction system. Left upper extremity and shoulder were then prepped and draped in routine sterile fashion. The arm was held in the Trimano arm holding device. Deltopectoral incision was taken down to the level of cephalic vein, which was identified and protected throughout the entire case. Deltoid was then retracted laterally over the humeral head where the conjoined tendon was gently retracted medially. Subscapularis was taken down in a peel method. The biceps tendon was cut and saved for later biceps tenodesis. Humeral head was dislocated through the incision. Humeral head cut was made using the Arthrex Univers humeral head cutting guide system. Serial and sequential reaming and broaching were done for a size 10 Univers Warroad stem. The trial was put into place with the humeral head protection plate. The glenoid was then approached. Circumferential labrectomy was followed by reaming and preparation for the VaultLock system. After copious irrigation and drying the VaultLock was cemented into place. All excess cement was removed. Excellent fixation was achieved. After the cement was allowed to harden, attention was returned to the proximal humerus. Trial was taken out and the final size 10 Univers Warroad stem was put into place. Inferior and superior lock were secured into place followed by placing the 46 x 18 offset humeral head at the appropriate position for maximal osseous coverage. Having completed the shoulder reduced, taken through range of motion and found to be appropriately stable. Subscapularis was then reapproximated to the lesser tuberosity in a transosseous fashion with a biceps tenodesis. The wound was copiously irrigated. At this point, the final incision was closed by Tristan Aguero with #1 Vicryl, 2-0 Vicryl and skin evelin. Sterile dressings were applied. The patient was placed in a slingshot sling and then awakened and taken to recovery room in stable condition. All final needle and sponge counts were correct. OPERATIVE REPORT [id number] ROSIO BENJAMIN TRANSINT:[id number] Voice Confirmation ID: [id number] DOCUMENT ID: [id number] SHEKHAR JENSEN, MANUEL VALENTIN at 1047 CC: [id number] DICTATION DATE: 07/24/1831 HISTORIAN RESEARCH ASSISTANT: 07/24/18 1003 DIS IN 07/22/18 [facility] [address] [place] [address]
== END 2018-07-22 12:50 | disposition home health service (06) | DRG 483 ==
LOC: D.SDCHOLD 07-20 13:20 → D.MS 07-20 20:15
PROVIDERS: ADMIT Orthopaedic Surgery
PROC: 0RRK0JZ Replacement of Left Shoulder Joint with Synthetic Substitute, Open Approach (ICD-10-PCS; principal; 2018-07-20 15:00)
DX: M19.012 Primary osteoarthritis, left shoulder (principal); E11.9 Type 2 diabetes mellitus without complications; I10 Essential (primary) hypertension

== ENCOUNTER 2018-07-16 07:59 | Day surgery (SDC) | payer MEDICARE ==
[~2018-07-16] VITALS: Ht 165.1 cm; Wt 109.3 kg
[~2018-07-16 07:59] MED LIST changes: +TOPROL XL50 MG PO
[2018-07-16 08:28] LABS: HEMATOCRIT 40.8 % (36.0-48.0); MCH 26.5 pg (26.0-34.0); MCHC 31.9 g/dL (31.0-37.0); MCV 83.3 fL (80.0-100.0); MEAN PLATELET VOLUME 9.7 fL (7.4-10.4); RBC 4.9 10x6/uL (4.00-5.40); RDW 16.6 % (11.5-14.5); WBC 10.2 10x3/uL (4.8-10.8)
[2018-07-16 08:44] LABS: ANION GAP 11.9 mmol/L (8-16); CALCIUM 8.8 mg/dL (8.5-10.1); CARBON DIOXIDE 30.2 mmol/L (21.0-32.0); CREATININE - SERUM 0.9 mg/dL (0.6-1.3); POTASSIUM - SERUM 4.1 mmol/L (3.5-5.1)
[2018-07-16 09:00] VITALS: Ht 165.1 cm; Wt 109.3 kg
--- NOTE | 2018-07-16 11:50 | NUR ---
REC'D FROM RR. NO ONE AT BEDSIDE. RELATES WILL HAVE TO CALL A [facility] FOR TRANSPORT. FL TRAY BROUGHT TO PT.
--- NOTE | 2018-07-16 12:20 | NUR ---
SUKUMAR THE HYDROELECTRIC STATION CHIEF FOR THE SACAL STIMILATOR IN TEACHING PATIENT THE USE OF THE STIMULATOR. TOLERATING FL DIET.
--- NOTE | 2018-07-16 12:30 | NUR ---
AMBULATED TO THE BATHROOM AND VOIDED WITHOUT DIFFICULTY.
--- NOTE | 2018-07-16 12:41 | OP ---
PATIENT NAME: ROSIO BENJAMIN MEDICAL RECORD: [id number] :51 LOCATION:D.[facility] ADMISSION DATE: SURGEON: LOLA YOO MD DATE OF OPERATION: 07/16/2018 SURGEON: Lola Yoo MD ANESTHESIA: TIVA by Patel Wilson CRNA. DIAGNOSES: Urge urinary incontinence, urge fecal incontinence. PROCEDURE: InterStim stage I, right S3. FINDINGS: Good hermann and toe flexion response from the right S3 foramen. The patient felt the stimulation in the vaginal area. BLOOD LOSS: None. CLINICAL HISTORY: This is a 62-year-old female, who has an ongoing issue with urge urinary incontinence as well as fecal incontinence. These episodes occur on an almost daily basis. For the urinary incontinence, I tried Myrbetriq 25 mg per day with the patient. She said it did not work at all. In order to try to control both the bladder and the bowel, InterStim would be the most promising option. SHE IS ALLERGIC TO SULFA, PENICILLIN, AND SHELLFISH. She was given Levaquin IV carbon printer to the OR. DESCRIPTION OF PROCEDURE: The patient was placed in prone position on the OR table. She was then given IV sedation. She was prepped and draped. Using fluoroscopy, we found the location of the S3 foramina on both sides. The spinal needles were placed on the skin to identify the location of the role sacral foramina. These were all marked with marking pen. The skin overlying the S2 foramen was infiltrated with lidocaine 1% with epinephrine. The spinal needles were then inserted on both sides. They entered into the S3 foramen on each side. We tested both of these. On the left side, she had a hermann response and toe flexion response. She felt the stimulation in the rectum. On the right side, far lower voltages were required as there was far more sensitive. Again, the hermann and great toe flexion responses were seen. She felt the stimulation in the vagina. We therefore went with the right side. The left-sided needle was removed entirely. A small incision was made on either side of the needle. The stylet of the spinal needle was removed. We inserted an extra-long stylet through the lumen of the needle. Once the extra-long stylet was in position, the spinal needle was removed entirely. Over the extra-long stylet, a trocar dilator was inserted. There was a radiopaque marker at the tip of the trocar sheath. This was placed at the midpoint of the sacral bone. The extra-long stylet and the trocar were then removed, leaving the sheath in place. Through the lumen of the sheath, we placed our permanent electrode. The permanent electrode has a slight bend to the tip and we placed the band so that it ran from medial to lateral. We then tested each of the channels in turn. Channel 0 had the greatest sensitivity. We went down towards channel 2, the sensitivity progressively decreased. However, all of the channels did provide a response. We then made a 2-cm incision at the level of the right iliac crest and a subcutaneous tunnel was made here using finger dissection. The tunneling device was used to bring the permanent electrode distal end through this new incision. Here, it was connected to the temporary test electrode. Four locking screws were tightened down using a torque-limiting screwdriver. The connection was OPERATIVE REPORT [id number] ROSIO BENJAMIN made secure and watertight using a silicone sheath. The sheath was tied down on each end with 2-0 Prolene ties to prevent ingress of water. The tunneling device was again used to bring the end of the temporary test electrode out of the sacral skin just to the left of the midline. The 2-cm right iliac crest wound had closure in 2 layers. The first layer just brought the subcutaneous fat back together using 3-0 Vicryl. Ad were then used to close all the incisions. Dressings were applied. The patient was then brought back to the preoperative holding area. The [employer] mechanical service representative will instruct the patient on use of the stimulator controls. I will see her back in 1 week's time to remove the ad and to check on her voiding symptoms as well as urge fecal incontinence. TRANSINT:[id number] Voice Confirmation ID: [id number] DOCUMENT ID: [id number] LOLA YOO MD at 1241 CC: [id number] DICTATION DATE: 07/16/18 1206 PROTECTIVE SIGNAL INSTALLER: 07/16/18 1231 REG [facility] [address] [place] [address]
--- NOTE | 2018-07-16 13:25 | NUR ---
WRITTEN AND VERBAL DC INST GIVEN TO PT. VERBALIZED UNDERSTANDING.
--- NOTE | 2018-07-16 13:50 | NUR ---
DC'D HOME VIA [facility]AXI. TAKEN TO [facility] VIA WC. STABLE AT TIME OF DC.
== END 2018-07-16 13:50 | disposition home or self-care (01) ==
LOC: D.OPS 07:59 → D.PAN 09:30 → D.OPS 09:30
PROVIDERS: Anesthesiology
DX: N39.41 Urge incontinence (principal); R15.2 Fecal urgency

== ENCOUNTER 2018-08-04 05:58 | Day surgery (SDC) | payer MEDICARE ==
[~2018-08-04] VITALS: Ht 165.1 cm; Wt 108.9 kg
[~2018-08-04 05:58] MED LIST changes: +LEVAQUIN750 MG PO; +PERCOCET 10-321 EAC1 PO
[2018-08-04 06:23] LABS: HEMATOCRIT 37.9 % (36.0-48.0); HEMOGLOBIN 11.9 g/dL (12-16); MCH 26.4 pg (26.0-34.0); MCHC 31.4 g/dL (31.0-37.0); MCV 84.2 fL (80.0-100.0); MEAN PLATELET VOLUME 9.7 fL (7.4-10.4); RBC 4.5 10x6/uL (4.00-5.40); WBC 9.6 10x3/uL (4.8-10.8)
[2018-08-04 06:35] LABS: CALC OSMOLALITY 292 mosm/kg (275-300); CALCIUM 8.7 mg/dL (8.5-10.1); CARBON DIOXIDE 30.3 mmol/L (21.0-32.0); CHLORIDE - SERUM 105 mmol/L (98-107); CREATININE - SERUM 0.8 mg/dL (0.6-1.3); GLUCOSE 137 mg/dL (74-106); POTASSIUM - SERUM 4.2 mmol/L (3.5-5.1); SODIUM 144 mmol/L (136-145); UREA NITROGEN 25 mg/dL (7-18); eGFR NON AFRICAN AMERICAN 76 mL/min (90-120)
--- NOTE | 2018-08-04 08:12 | NUR ---
[address] YOO. INFORMED OF ELEVATED BUN 25, & PLATELETS 691. STATES OK FOR SURGERY. NO ORDERS RECEIVED. Robert BELTRE R.N.
[2018-08-04 08:22] VITALS: Ht 165.1 cm; Wt 108.9 kg
--- NOTE | 2018-08-04 11:37 | OP ---
PATIENT NAME: ROSIO BENJAMIN MEDICAL RECORD: [id number] :[birth year] [facility] ADMISS[facility] DATE: SURGEON: LOLA YOO MD DATE OF OPERATION: 08/04/2018 SURGEON: MD rolo Gutierrez. ANESTHESIA: TIVA by Jacques Nixon CRNA DIAGNOSIS: Urge urinary incontinence, fecal incontinence. PROCEDURE: InterStim stage II, placed in the right iliac crest region. FINDINGS: Incisions are intact with no signs of infection. SPECIMENS: None. BLOOD LOSS: Minimal. CLINICAL HISTORY: This is a 62-year-old female, who has urge urinary incontinence that has not responded to any medications. She also has urge fecal incontinence. We performed an InterStim stage I trial on her about 3 weeks ago. She has had an excellent response to the treatment and she is no longer incontinent of either bowel or bladder. She comes to have the permanent pacemaker inserted, which is stage II. SHE IS ALLERGIC TO PENICILLIN AND SULFA WELL SHRIMP. She was given Levaquin kindergarten instructional assistant to the OR. DESCRIPTION OF PROCEDURE: The patient was placed in the prone position on the table. She was given IV sedation. She was prepped and draped. The old incision was reopened at the right iliac crest region. It was about 1 inch in length. With blunt dissection of the fingers, I got down to the gluteal fascia and made a subcutaneous pocket to receive the permanent pacemaker. I also got the electrodes out of the incision. The permanent electrode was disassembled from the temporary test electrode. The Prolene sutures that had been tied at either end of the connection was removed using a #15 blade. The covering sheath was removed. The 4 connecting screws from the temporary test electrode to the permanent electrode were loosened and the temporary test electrode was completely removed. The connecting boot was also completely removed. We then placed the permanent electrode into the pacemaker. Once the electrode was fully seated in the pacemaker, we then tightened down the connecting screw with a torque-limiting screwdriver. The pacemaker was then placed into the subcutaneous pocket that was made for it. The wound was irrigated out with sterile water. Simple interrupted Vicryl 3-0 sutures were used to reapproximate the subcutaneous fat. The skin was closed with evelin and then a dressing was applied over the incision. Telemetry was done on the unit and is completely intact. The settings from her test unit were transferred by the Medtronic premium service representative to the permanent pacemaker. I will see the patient in followup next week to remove the evelin on her incision. TRANSINT:[id number] Voice Confirmation ID: [id number] DOCUMENT ID: [id number] OPERATIVE REPORT [id number] ROSIO BENJAMIN, LOLA Barreto MD at 1137 CC: [id number] DICTATION DATE: 08/04/18 1013 CYTOGENETICS TECHNOLOGIST: 08/04/18 1030 [facility] [place] [id number] [place] [id number]
--- NOTE | 2018-08-04 15:06 | NUR ---
1105 IV DC'ED WITH CATH INTACT IWTH 300ML LTC. DRESSING. Edwin HUNT R.N. 1145 DRESSED, AWAKE, & ALERT. GIVEN DISCHARGE INFORMATION INCLUDING: RX: TYLENOL #3, MED REC., RTC APPT., & [facility] OUTPATIENT D/C INSTRUCTIONS. PT VOICED UNDERSTANDING. TO FRONT ENTRANCE PER WHEELCHAIR BY THIS NURSE. HOME PER [facility]. Edwin HUNT R.N.
== END 2018-08-04 11:45 | disposition home or self-care (01) ==
LOC: D.OPS 05:58 → D.PAN 08:50 → D.OPS 09:00 → D.PAN 10:30 → D.OPS 10:30
PROVIDERS: Anesthesiology; ATTEND Urology
DX: N39.41 Urge incontinence (principal); R15.9 Full incontinence of feces; Z01.812 Encounter for preprocedural laboratory examination

== ENCOUNTER 2018-08-06 15:34 | Emergency (ER) | payer MEDICARE ==
[~2018-08-06] VITALS: Ht 165.1 cm; Wt 104.5 kg
[2018-08-06 15:47] VITALS: Ht 165.1 cm; Wt 104.5 kg
[2018-08-06 17:48] VITALS: BP 124/72
== END 2018-08-06 17:30 | disposition home or self-care (01) ==
LOC: D.ER 15:34
DX: M25.512 Pain in left shoulder (principal); M25.551 Pain in right hip; W18.30XA Fall on same level, unspecified, initial encounter; Y93.89 Activity, other specified; Y92.410 Unspecified street and highway as the place of occurrence of the external cause

== ENCOUNTER 2018-09-10 10:33 | Day surgery (SDC) | payer MEDICARE ==
[~2018-09-10] VITALS: Ht 160 cm; Wt 108.9 kg
[~2018-09-10 10:33] MED LIST changes: +CIPRO500 MG PO; +OXYCONTIN15 MG PO
[2018-09-10 11:07] LABS: HEMATOCRIT 39.5 % (36.0-48.0); HEMOGLOBIN 12.3 g/dL (12-16); MCH 25.7 pg (26.0-34.0); MCHC 31.1 g/dL (31.0-37.0); MCV 82.5 fL (80.0-100.0); MEAN PLATELET VOLUME 9.4 fL (7.4-10.4); RBC 4.79 10x6/uL (4.00-5.40); WBC 11.4 10x3/uL (4.8-10.8)
[2018-09-10 11:10] LABS: CALC OSMOLALITY 291 mosm/kg (275-300); CALCIUM 8.9 mg/dL (8.5-10.1); CARBON DIOXIDE 29.8 mmol/L (21.0-32.0); CHLORIDE - SERUM 106 mmol/L (98-107); CREATININE - SERUM 0.7 mg/dL (0.6-1.3); GLUCOSE 171 mg/dL (74-106); POTASSIUM - SERUM 3.9 mmol/L (3.5-5.1); SODIUM 143 mmol/L (136-145); UREA NITROGEN 22 mg/dL (7-18); eGFR NON AFRICAN AMERICAN 89 mL/min (90-120)
[2018-09-10 11:38] VITALS: BP 110/74; Ht 160 cm; Wt 108.9 kg
--- NOTE | 2018-09-17 11:33 | OP ---
PATIENT NAME: ROSIO BENJAMIN MEDICAL RECORD: [id number] :[birth year] LOCATION:D[facility] ADMISSION DATE: SURGEON: MANUEL CORRIGAN MD DATE OF OPERATION: 09/10/2018 PREOPERATIVE DIAGNOSIS: Superficial open wound status post total shoulder arthroplasty. POSTOPERATIVE DIAGNOSIS: Superficial open wound status post total shoulder arthroplasty. PROCEDURE: Excisional debridement of superficial open wound with closure. SURGEON: Manuel Corrigan MD ANESTHESIA: General. INTRAOPERATIVE COMPLICATIONS: None. SUMMARY OF PATHOLOGIC FINDINGS: The patient seemed to have severe reaction to the Vicryl sutures which had not happened in the past; however, she had 3 areas of opening that in my opinion needed operative attention. OPERATIVE SUMMARY IN DETAIL: After obtaining appropriate preoperative orthopedic surgery consent as well as anesthetic consultation, evaluation, and clearance, the patient was brought to the operating room and placed on the operating table in supine position. After general laryngeal mask was administered, the left shoulder was prepped and draped in routine sterile fashion. Elliptical incision was made about the area of necrotic tissue with a combination of rongeur, curettage as well as scalpel, excisional debridement were utilized to include skin, subcutaneous tissue, portions of fascia as well as foreign suture material. Copious irrigation was then followed by a mattress suture closer for good skin edge eversion. Having completed this, sterile dressings were applied. The patient was awakened, taken to recovery room in stable condition. All final needle and sponge counts were correct. TRANSINT:[id number] Voice Confirmation ID: [id number] DOCUMENT ID: [id number] MANUEL CORRIGAN MD at 1133 CC: [id number] DICTATION DATE: 09/16/181721 ASSISTANT FRONT DESK MANAGER: 09/17/18 0231 [facility] 09/10/18 [place] [address]
== END 2018-09-10 15:30 | disposition home or self-care (01) ==
LOC: D.OPS 10:33 → D.PAN 13:00 → D.OPS 15:30
PROVIDERS: Anesthesiology; ATTEND Orthopaedic Surgery
DX: T81.31XA Disruption of external operation (surgical) wound, not elsewhere classified, initial encounter (principal); Z01.812 Encounter for preprocedural laboratory examination

== ENCOUNTER 2018-12-15 19:00 | Outpatient (CLI) | payer MEDICARE ==
[2018-09-10 11:38] VITALS: BMI 42.6
== END 2018-12-15 23:59 | disposition home or self-care (01) ==
LOC: D.MAMMO 19:00
PROVIDERS: ATTEND Family Medicine
DX: Z12.31 Encounter for screening mammogram for malignant neoplasm of breast (principal)

== ENCOUNTER → 2019-02-12 13:29 | Outpatient (CLI) | payer MEDICARE ==
[2018-09-10 11:38] VITALS: BMI 42.6
--- NOTE | 2019-02-12 14:26 | NUR ---
time out performed at 1415 using name and , allergies listed. procedure performed by
== END | disposition home or self-care (01) ==
LOC: D.RAD 13:29
PROVIDERS: ATTEND Orthopaedic Surgery
DX: M75.122 Complete rotator cuff tear or rupture of left shoulder, not specified as traumatic (principal)

== ENCOUNTER 2019-04-04 12:52 | Emergency (ER) | payer MEDICARE ==
[~2019-04-04] VITALS: Ht 162.6 cm; Wt 106.8 kg
[2019-04-04 12:56] VITALS: Ht 162.6 cm; Wt 106.8 kg
[2019-04-04] MEDS ORDERED: GLUCOPHAGE1000 MG PO (13:00)
[2019-04-04] MEDS ORDERED: CYCLOBENZAPRINE10 MG PO (14:27)
[2019-04-04] MEDS ORDERED: PREDNISONE10 MG PO (14:27)
[2019-04-04] MEDS ORDERED: ULTRAM50 MG PO (14:27)
[2019-04-04 14:58] VITALS: BP 158/73
== END 2019-04-04 15:00 | disposition home or self-care (01) ==
LOC: D.ER 12:52
DX: S20.211A Contusion of right front wall of thorax, initial encounter (principal); W19.XXXA Unspecified fall, initial encounter; E11.8 Type 2 diabetes mellitus with unspecified complications; Z79.84 Long term (current) use of oral hypoglycemic drugs; J45.909 Unspecified asthma, uncomplicated; Z79.51 Long term (current) use of inhaled steroids

== ENCOUNTER → 2019-04-21 18:32 | Outpatient (CLI) | payer MEDICARE ==
[2019-04-04 12:56] VITALS: BMI 40.4
[~2019-04-21 18:32] MED LIST changes: +GLUCOPHAGE1000 MG PO; +PREDNISONE10 MG PO; +ULTRAM50 MG PO
== END | disposition home or self-care (01) ==
LOC: D.LABREF 18:32
PROVIDERS: ATTEND Urology
DX: N39.0 Urinary tract infection, site not specified (principal)

== ENCOUNTER 2019-07-14 11:53 | Inpatient (IN) | payer MEDICARE ==
[~2019-07-14] VITALS: Ht 165.1 cm; Wt 100.0 kg
--- NOTE | ~2019-07-14 | OP ---
PATIENT NAME: ROSIO BENJAMIN MEDICAL RECORD: [id number] :[birth year] LOCATION:D.M3 D.1209 ADMISSION DATE:07/26/19 SURGEON: MANUEL CORRIGAN MD DATE OF OPERATION: 07/26/2019 PREOPERATIVE DIAGNOSES: Rotator cuff tear arthropathy of the left shoulder status post total shoulder arthroplasty. POSTOPERATIVE DIAGNOSES: Rotator cuff tear arthropathy of the left shoulder status post total shoulder arthroplasty. PROCEDURE: Revision of total shoulder arthroplasty to reverse total shoulder arthroplasty. SURGEON: Manuel Corrigan MD HARNESS CUTTER: Tristan Aguero. INTRAOPERATIVE COMPLICATIONS: None. SUMMARY OF PATHOLOGIC FINDINGS: Unfortunately, the patient did have full thickness rotator cuff tearing with retraction obviating the need for revision to reverse. IMPLANTS USED: Tornier reverse total shoulder arthroplasty. IMPLANTS REMOVED: Arthrex primary total shoulder arthroplasty. OPERATION SUMMARY IN DETAIL: After obtaining the appropriate preoperative orthopedic surgery consent as well as anesthetic consultation, evaluation and clearance, the patient was brought to the operating room and placed on the operating table in supine position. After adequate general laryngeal mask airway was administered, the patient was placed in beach chair position. All pressure points were well padded. She was held firmly to the operating table using the vacuum pack suction system. Left upper extremity and shoulder were then prepped and draped in routine sterile fashion. The arm was held in the Trimano arm holding device. Deltopectoral incision was taken down. The cephalic vein was identified and protected to the entire case. Clavipectoral fascia was incised. Deltoid was then retracted laterally using a brown retractor. At this point, subscapularis was taken down and the chronic rotator cuff tearing of the supraspinatus tendon was noted. The shoulder was then dislocated into the wound. Humeral head was removed followed by removal of the stem with some degree of trepidation. Having completed this, the glenoid was approached. The glenoid was likewise removed. Serial and sequential reaming were done for the 25-mm baseplate that was the metaglene. The metaglene was then seated using a central screw along with 3 peripheral screws. A 3-mm lateralized baseplate was utilized and then a 2-mm inferior offset glenosphere was tamped into place on the Reddy taper. It was then screwed and seated and tamped again and screwed for final compression. Having completed this, attention was then returned to the humerus. Serial and sequential reaming and broaching were done for the size 7. The longer Tornier stem trials were undertaken with the low profile and size 6 polyethylene insert. This was taken through range of motion and found to be stable in all planes. Final components were assembled on the back table. This was then placed into the proximal humerus with good fit and fill. Again, trials were undertaken. It was felt OPERATIVE REPORT [id number] ROSIO BENJAMIN that the size 6 polyethylene was most appropriate. This was tamped into place. Shoulder was reduced, taken through range of motion and found to be stable in all planes. A gram of vancomycin and gram of tobramycin were placed into the wound. The residual subscapularis was reapproximated to the lesser tuberosity in transosseous fashion with #2 Ethibond. Final closure was achieved by Tristan Aguero with #1 Vicryl, 2-0 Vicryl and skin evelin. Sterile dressings were applied. The patient was then awakened and taken to the recovery room in stable condition. All final needle and sponge counts were correct. TRANSINT:[id number] Voice Confirmation ID: [id number] DOCUMENT ID: [id number] 07/30/2019 Edited for date of operation error, dmm. SHEKHAR JENSEN, MANUEL VALENTIN CC: [id number] DICTATION DATE: 07/27/19 0938 QUANTITATIVE ANALYST DEVELOPER: 07/27/19 1039 DIS IN 07/28/19 [facility] [address] [place] [address]
[2019-07-19] MEDS ORDERED: ZANAFLEX4 MG PO (07:43)
[2019-07-19 08:56] LABS: HEMOGLOBIN 13.1 g/dL (12-16); MCV 84.4 fL (80.0-100.0); MEAN PLATELET VOLUME 9.6 fL (7.4-10.4); PLATELET COUNT 525 10x3/uL (130-400); RBC 4.86 10x6/uL (4.00-5.40); RDW 15.3 % (11.5-14.5); WBC 11.2 10x3/uL (4.8-10.8)
[2019-07-19 08:58] LABS: PROTIME 13.2 SECONDS (11.6-15.0)
[2019-07-19 08:59] LABS: APTT 29.9 SECONDS (22.8-39.4)
[2019-07-19 09:01] LABS: CALC OSMOLALITY 284 mosm/kg (275-300); CALCIUM 9.3 mg/dL (8.5-10.1); CARBON DIOXIDE 29.2 mmol/L (21.0-32.0); CHLORIDE - SERUM 105 mmol/L (98-107); CREATININE - SERUM 0.8 mg/dL (0.6-1.3); POTASSIUM - SERUM 4.4 mmol/L (3.5-5.1); SODIUM 141 mmol/L (136-145); UREA NITROGEN 23 mg/dL (7-18); eGFR NON AFRICAN AMERICAN 76 mL/min (90-120)
[2019-07-19 09:24] LABS: GLUCOSE 106 mg/dL (74-106)
[2019-07-19 10:33] LABS: BILIRUBIN NEGATIVE (NEGATIVE); GLUCOSE NEGATIVE (NEGATIVE); KETONE NEGATIVE (NEGATIVE); NITRITE NEGATIVE (NEGATIVE); SPECIFIC GRAVITY 1.025 (1.005-1.020); WHITE CELLS - URINE 0-5 /hpf (NEGATIVE)
[2019-07-19 10:34] LABS: BACTERIA FEW /hpf (NEGATIVE); EPITHELIAL CELLS 0-5 /hpf (0-5); HYALINE CAST 0-5 /lpf (NONE SEEN)
[2019-07-19 10:47] LABS: EOSINOPHILS 4 % (0-7); LYMPHOCYTES 54 % (15-50); MONOCYTES 8 % (2-11); NEUTROPHILS 31 % (40-80)
[2019-07-19 10:48] LABS: ANISOCYTOSIS OCC; PLATELET ESTIMATE NORMAL
[2019-07-26] VITALS (7 sets, daily range): BP systolic 92–148; BP diastolic 69–95; Ht 165.1 cm; Wt 100.0 kg
--- NOTE | 2019-07-26 15:05 | NUR ---
1445 SAO2 DROPS TO 84% ON 4 L OXYGEN PER NASAL CANULA. DR LINARES NOTIFIED. CHEST XRAY ORDERED 1455 CHEST XRAY RESULTS BACK AND GIVEN TO DR LINARES. ORDER FOR RESPIRATORY THERAPY TO ADMINISTER FULL BLOWN UPDRAFT TREATMENT WITH PULMONARY TOILETRY RECIEVED. 1500 RESPIRATORY THERAPY HERE.
--- NOTE | 2019-07-26 15:30 | NUR ---
PATIENT TO ROOM AT THIS TIME. NO COMPLAINTS OR SIGNS OF DISTRESS. ASSISTED TO THE BR X 1. PATIENT VOIDED WITH NO PROBLEMS. PLACED BACK TO BED. VS STABLE. IV INTACT. SLING ON LUE. DRESSING CDI. BSCDS ON AND WORKING. CALL LIGHT WITHIN REACH.
--- NOTE | 2019-07-26 16:46 | MORECARE ---
CASE MANAGEMENT DISCHARGE SUMMARY PATIENT: ROSIO BENJAMIN UNIT: [id number] ADM DATE: 07/26/19 AGE: 63 : 51 SEX: F ROOM/BED: D.1209 AUTHOR: ADAMS FERRERA PHYSICIAN: REFERRING PHYSICIAN: MANUEL CORRIGAN MD DATE OF SERVICE: 07/26/19 Discharge Plan Patient Name: ROSIO BENJAMIN Facility: [facility]:[place] : 1955 Planned Disposition: Home or Self Care Anticipated Discharge Date: Discharge Date: Expected LOS: Initial Reviewer: [email or web address] Initial Review Date: 07/26/2019 Generated: 07/26/19 5:45 pm DCP- Discharge Planning Updated by [email or web address]: Emmy Daly on 07/26/19 3:[address] CM met with patient to discuss initial discharge planning. Patient is in agreement to proceed with the assessment. Patient reports that she lives at home, alone and Independent with ADL's. Patient is alert/oriented. Stairs/steps: 6 w/rails. PCP: Dr. Whittaker. [facility]acy[facility]. Patient states she has been able to obtain all of her prescribed medications FUSING MACHINE OPERATOR. HHS: No. DME: L[facility], W/John, BSJohn, [facility], ISMAEL, C[facility]. Patient does not give permission to speak with family members/care givers. Emergency contact: Alvino Saucedo [phone]. Patient is Independent with all ADL's, medication management FUSING MACHINE OPERATOR. CM discussed the availability of HH, Rehab, DME services. Patient plans to use [facility] when the MD agrees. Patient denies being hospitalized within the past 30 days. Patient denies the use of community resources FUSING MACHINE OPERATOR. Transportation at time of discharge: A friend will drive her home and take her to her appointments. CM will assist with DC plans/needs PRN. Patient Name: ROSIO BENJAMIN Page 27831 at 1646 All edits/amendments must be made on the electronic document DICTATION DATE: 07/26/19 1645 DENTAL ASSISTANT INSTRUCTOR: MATHEW 07/26/191644 RPT#: [id number] DC DATE: STATUS: ADM IN [facility] [address] [place] [address] END OF REPORT
--- NOTE | 2019-07-26 17:08 | MORECARE ---
CASE MANAGEMENT DISCHARGE SUMMARY PATIENT: ROSIO BENJAMIN UNIT: [id number] ADM DATE: 07/26/19 AGE: 63 : 53 SEX: F ROOM/BED: D.1209 AUTHOR: MAISHA,DOC PHYSICIAN: REFERRING PHYSICIAN: MANUEL CORRIGAN MD DATE OF SERVICE: 07/26/19 Discharge Plan Patient Name: ROSIO BENJAMIN Facility: [facility]:[place] : 1955 Planned Disposition: Home or Self Care Anticipated Discharge Date: Discharge Date: Expected LOS: Initial Reviewer: [email or web address] Initial Review Date: 07/26/2019 Generated: 07/26/19 6:07 pm DCP- Discharge Planning Updated by [email or web address]: Emmy Daly on 07/26/19 3:[address] CM met with patient to discuss initial discharge planning. Patient is in agreement to proceed with the assessment. Patient reports that she lives at home, alone and Independent with ADL's. Patient is alert/oriented. Stairs/steps: 6 w/rails. PCP: Dr. Whittaker. Pharmacy: [facility]. Patient states she has been able to obtain all of her prescribed medications DIRECTOR VISUAL. HHS: No. DME: Laci, W/John, BSC, Phoenix mosher, ISMAEL, C-pap. Patient does not give permission to speak with family members/care givers. Emergency contact: Alvino Saucedo [phone]. Patient is Independent with all ADL's, medication management DIRECTOR VISUAL. CM discussed the availability of HH, Rehab, DME services. Patient plans to use [facility] when the MD agrees. Patient denies being hospitalized within the past 30 days. Patient denies the use of community resources DIRECTOR VISUAL. Transportation at time of discharge: A friend will drive her home and take her to her appointments. CM will assist with DC plans/needs PRN. DCPIA - Discharge Planning Initial Assessment Updated by [email or web address]: Emmy Daly on 07/26/19 5:04 pm * Is the patient Alert and Oriented? Yes * How many steps to enter\exit or inside your home? 6 w/rails * PCP DR. Whittaker * Pharmacy [facility] * Preadmission Environment Home Alone * ADLs Independent * Equipment Bedside Commode BIPAP Nebulizer Rolling Walker Wheelchair * List name and contact numbers for known caregivers / representatives who currently or will assist patient after discharge: Alvino Nash [phone] * Verbal permission to speak to the caregivers and representatives has been obtained from the patient. No * Community resources currently utilized None * Additional services required to return to the preadmission environment? No * Can the patient safely return to the preadmission environment? Yes * Has this patient been hospitalized within the prior 30 days at any hospital? No Last DP export: 07/26/19 3:46 p Patient Name: ROSIO BENJAMIN Page [id number] at 1708 All edits/amendments must be made on the electronic document DICTATION DATE: 07/26/191706 CRAFT COORDINATOR: MATHEW 07/26/191706 RPT#: [id number] DC DATE: STATUS: ADM IN [facility] [address] [place] [address] END OF REPORT
--- NOTE | 2019-07-26 17:29 | NUR ---
PATIENT TOLERATED REGULAR DIET WITH NO N/V. IV INTACT. VS STABLE. SLING TO LUE WITH ICE PACK. BSCDS ON AND WORKING. CALL LIGHT WITHIN REACH.
--- NOTE | 2019-07-26 18:03 | MORECARE ---
CASE MANAGEMENT DISCHARGE SUMMARY PATIENT: ROSIO ADAMES UNIT: [id number] ADM DATE: 07/26/19 AGE: 63 : 53 SEX: F ROOM/BED: D.1209 AUTHOR: MAISHA,DOC PHYSICIAN: REFERRING PHYSICIAN: MANUEL CORRIGAN MD DATE OF SERVICE: 07/26/19 Discharge Plan Patient Name: ROSIO ADAMES Facility: [facility]:[place] : 1955 Planned Disposition: Home or Self Care Anticipated Discharge Date: Discharge Date: Expected LOS: Initial Reviewer: [email or web address] Initial Review Date: 07/26/2019 Generated: 07/26/19 7:03 pm DCP- Discharge Planning Updated by [email or web address]: Emmy Daly on 07/26/19 3:[address] CM met with patient to discuss initial discharge planning. Patient is in agreement to proceed with the assessment. Patient reports that she lives at home, alone and Independent with ADL's. Patient is alert/oriented. Stairs/steps: 6 w/rails. PCP: Dr. Whittaker. Pharmacy: [facility]. 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 HHS: No. DME: Laci, W/John, BSC, Phoenix mosher, ISMAEL, C-pap. Patient does not give permission to speak with family members/care givers. Emergency contact: Alvino Saucedo [phone]. Patient is Independent with all ADL's, medication management WEEKEND CAREGIVER. CM discussed the availability of HH, Rehab, DME services. Patient plans to use [facility] when the MD agrees. Patient denies being hospitalized within the past 30 days. Patient denies the use of community resources WEEKEND CAREGIVER. Transportation at time of discharge: A friend will drive her home and take her to her appointments. CM will assist with DC plans/needs PRN. DCPIA - Discharge Planning Initial Assessment Updated by [email or web address]: Emmy Daly on 07/26/19 5:04 pm * Is the patient Alert and Oriented? Yes * How many steps to enter\exit or inside your home? 6 w/rails * PCP DR. Whittaker * Pharmacy [facility] * Preadmission Environment Home Alone * ADLs Independent * Equipment Bedside Commode BIPAP Nebulizer Rolling Walker Wheelchair * List name and contact numbers for known caregivers / representatives who currently or will assist patient after discharge: Alvino Saucedo [phone] * Verbal permission to speak to the caregivers and representatives has been obtained from the patient. No * Community resources currently utilized None * Additional services required to return to the preadmission environment? No * Can the patient safely return to the preadmission environment? Yes * Has this patient been hospitalized within the prior 30 days at any hospital? No Coverage Notice Reviewer: [email or web address] Francine Daly Notice Issued Date-Time: 07/26/2019 17:39 Notice Type: Patient Choice Letter Notice Delivered To: Patient Relationship to Patient: Self Holter Scanning Technician Name: Rosio Adames Delivery Method: HAND - Hand Delivered Bailey Days: Prior Verbal Notification: Recipient Understood Notice: Yes Recipient Signature: Yes Med Rec Note Co-signed by Attending: Coverage Notice Comment: Patient Choice Letter for [facility] signed by patient. Last DP export: 07/26/19 4:08 p Patient Name: ROSIO ADAMES Page [phone] at 1803 All edits/amendments must be made on the electronic document DICTATION DATE: 07/26/191802 SUPPLY CHAIN VICE PRESIDENT: MATHEW 07/26/191802 RPT#: [id number] DC DATE: STATUS: ADM IN [facility] [address] [place] [address] END OF REPORT
--- NOTE | 2019-07-26 19:44 | NUR ---
PATIENT RESTING IN BED WITH NO S/S OF DISTRESS. VSS. PATIENT REQUESTED HER ZANAFLEX THAT SHE TAKES AT HOME. HOME MED IS NOT REORDERED. PATIENT REQUESTED THE DOCTOR BE CALLED TO RESTART HER ZANAFLEX. APPLIED ICE TO LEFT SHOULDER. PATIENT DENIES OTHER NEEDS AT THIS TIME. BED IN LOWEST POSITION AND CALL LIGHT WITHIN REACH. ENCOURAGED THE PATIENT TO CALL IF SHE HAS NEEDS. WILL CONTINUE TO MONITOR.
--- NOTE | 2019-07-26 19:50 | NUR ---
ASSISTED PATIENT TO AND FROM RESTROOM. ADMINISTERED MEDS PER ORDERS. PATIENT DENIES OTHER NEEDS AT THIS TIME. BED IN LOWEST POSITION AND CALL LIGHT WITHIN REACH. ENCOURAGED THE PATIENT TO CALL IF SHE HAS NEEDS. WILL CONTINUE TO MONITOR.
--- NOTE | 2019-07-26 20:23 | NUR ---
PAGEJaime VELASQUEZ APN IN REGARDS TO ZANAFLEX, PER PATIENT REQUEST.
--- NOTE | 2019-07-26 20:36 | NUR ---
PAGED DR. CORRIGAN IN REGARDS TO PATIENT REQUEST FOR ZANAFLEX.
--- NOTE | 2019-07-26 20:51 | NUR ---
SPOKE WITH DR. CORRIGAN WHO RESTARTED ALL OF THE PATIENT'S HOME MEDICATIONS
--- NOTE | 2019-07-26 21:47 | NUR ---
ADMINISTERED MEDS PER ORDERS. ENCOURAGED THE PATIENT TO CALL IF SHE HAS NEEDS. WILL CONTINUE TO MONITOR.
[2019-07-27 04:45] VITALS: BP 141/85
--- NOTE | 2019-07-27 07:45 | NUR ---
PATIENT IN BED WITH IV INTACT. NO COMPLAINTS OR SIGNS OF DISTRESS. BSCDS ON AND WORKING. CALL LIGHT WITHIN REACH.
[2019-07-27 07:50] LABS: HEMOGLOBIN 10.8 g/dL (12-16); MCH 26.3 pg (26.0-34.0); MCHC 30.9 g/dL (31.0-37.0); MCV 85.4 fL (80.0-100.0); MEAN PLATELET VOLUME 9.7 fL (7.4-10.4); RBC 4.1 10x6/uL (4.00-5.40); RDW 15.4 % (11.5-14.5)
[2019-07-27 08:19] VITALS: BP 104/67
--- NOTE | 2019-07-27 10:45 | NUR ---
PATIENT SITTING UP ON SIDE OF BED AT THIS TIME. IV INTACT. SLING TO LUE. NO COMPLAINTS OR SIGNS OF DISTRESS. CALL LIGHT WITHIN REACH.
--- NOTE | 2019-07-27 11:44 | MORECARE ---
CASE MANAGEMENT DISCHARGE SUMMARY PATIENT: ROSIO ADAMES UNIT: [id number] ADM DATE: 07/26/19 AGE: 63 : 53 SEX: F ROOM/BED: D.1209 AUTHOR: MAISHA,DOC PHYSICIAN: REFERRING PHYSICIAN: MANUEL CORRIGAN MD DATE OF SERVICE: 07/27/19 Discharge Plan Patient Name: ROSIO ADAMES Facility: [facility]:[place] : 1955 Planned Disposition: Home or Self Care Anticipated Discharge Date: Discharge Date: Expected LOS: Initial Reviewer: [email or web address] Initial Review Date: 07/26/2019 Generated: 07/27/19 12:44 pm DCP- Discharge Planning Updated by [email or web address]: Emmy Daly on 07/26/19 3:[address] CM met with patient to discuss initial discharge planning. Patient is in agreement to proceed with the assessment. Patient reports that she lives at home, alone and Independent with ADL's. Patient is alert/oriented. Stairs/steps: 6 w/rails. PCP: Dr. Whittaker. Pharmacy: [facility]. 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 HHS: No. DME: Laci, W/John, BSC, Phoenix mosher, ISMAEL, C-pap. Patient does not give permission to speak with family members/care givers. Emergency contact: Alvino Saucedo [phone]. Patient is Independent with all ADL's, medication management ASBESTOS CEMENT SHEET SUPERVISOR. CM discussed the availability of HH, Rehab, DME services. Patient plans to use [facility] when the MD agrees. Patient denies being hospitalized within the past 30 days. Patient denies the use of community resources ASBESTOS CEMENT SHEET SUPERVISOR. Transportation at time of discharge: A friend will drive her home and take her to her appointments. CM will assist with DC plans/needs PRN. DCPIA - Discharge Planning Initial Assessment Updated by [email or web address]: Emmy Daly on 07/26/19 5:04 pm * Is the patient Alert and Oriented? Yes * How many steps to enter\exit or inside your home? 6 w/rails * PCP DR. Whittaker * Pharmacy [facility] * Preadmission Environment Home Alone * ADLs Independent * Equipment Bedside Commode BIPAP Nebulizer Rolling Walker Wheelchair * List name and contact numbers for known caregivers / representatives who currently or will assist patient after discharge: Alvino Saucedo [phone] * Verbal permission to speak to the caregivers and representatives has been obtained from the patient. No * Community resources currently utilized None * Additional services required to return to the preadmission environment? No * Can the patient safely return to the preadmission environment? Yes * Has this patient been hospitalized within the prior 30 days at any hospital? No Coverage Notice Reviewer: [email or web address] Francine Daly Notice Issued Date-Time: 07/26/2019 17:39 Notice Type: Patient Choice Letter Notice Delivered To: Patient Relationship to Patient: Self Loan Service Officer Name: Rosio Adames Delivery Method: HAND - Hand Delivered Bailey Days: Prior Verbal Notification: Recipient Understood Notice: Yes Recipient Signature: Yes Med Rec Note Co-signed by Attending: Coverage Notice Comment: Patient Choice Letter for [facility] signed by patient. Last DP export: 07/26/19 5:03 p Patient Name: ROSIO ADAMES Page [phone] at 1144 All edits/amendments must be made on the electronic document DICTATION DATE: 07/27/19 1144 SKIDDER RUNNER: MATHEW 07/27/19 1144 RPT#: [id number] DC DATE: STATUS: ADM IN [facility] [address] [place] [address] END OF REPORT
--- NOTE | 2019-07-27 11:54 | MORECARE ---
CASE MANAGEMENT DISCHARGE SUMMARY PATIENT: ROSIO ADAMES UNIT: [id number] ADM DATE: 07/26/19 AGE: 63 : 51 SEX: F ROOM/BED: D.1209 AUTHOR: MAISHA,DOC PHYSICIAN: REFERRING PHYSICIAN: MANUEL CORRIGAN MD DATE OF SERVICE: 07/27/19 Discharge Plan Patient Name: ROSIO ADAMES Facility: [facility]:[place] : 1955 Planned Disposition: Home or Self Care Anticipated Discharge Date: Discharge Date: Expected LOS: Initial Reviewer: Initial Review Date: 07/26/2019 Generated: 07/27/19 12:54 pm Comments DCP- Discharge Planning Updated by [email or web address]: Aleshia Cherry on 07/27/19 10:[address] PT informed CM that he did not recommend the patient going home alone. She is unable to use her left arm and he is concerned she is not going to be able to manage safely at home alone. CM also received a call from Alvino her emergency contact (patient gave cm permission to speak to Alvino) who is also concerned about patients dc home alone. Alvino called and spoke to patient and Alvino state the patient is agreeable to go to rehab. CM met with patient and she is only agreeable to IN rehab. She stated she will not go to a half-way. ABDON form presented, explained,and signed by the patient for 1. [facility]ENSING [facility]PER[facility] IN Rehab and 2. [facility] IN Rehab. Telephone order received from Ana Romero APRN for Rehab Prescreening Consult. CM ordered consult and will await admission determination. Aleshia Cherry RN,[facility] DCP- Discharge Planning Updated by [id number]: Emmy Daly on 07/26/19 3:[address] CM met with patient to discuss initial discharge planning. Patient is in agreement to proceed with the assessment. Patient reports that she lives at home, alone and Independent with ADL's. Patient is alert/oriented. Stairs/steps: 6 w/rails. PCP: Dr. Whittaker. [facility]acy[facility]. Patient states she has been able to obtain all of her prescribed medications ELECTRICIAN MAINTENANCE. HHS: No. DME: Walker, W/C, BSC, Shower bench, UD, C-pap. Patient does not give permission to speak with family members/care givers. Emergency contact: Alvino Saucedo [phone]. Patient is Independent with all ADL's, medication management ELECTRICIAN MAINTENANCE. CM discussed the availability of HH, Rehab, DME services. Patient plans to use [facility] when the MD agrees. Patient denies being hospitalized within the past 30 days. Patient denies the use of community resources ELECTRICIAN MAINTENANCE. Transportation at time of discharge: A friend will drive her home and take her to her appointments. CM will assist with DC plans/needs PRN. DCPIA - Discharge Planning Initial Assessment Updated by [email or web address]: Emmy Daly on 07/26/19 5:04 pm * Is the patient Alert and Oriented? Yes * How many steps to enter\exit or inside your home? 6 w/rails * PCP DR. Whittaker * Pharmacy [facility] * Preadmission Environment Home Alone * ADLs Independent * Equipment Bedside Commode BIPAP Nebulizer Rolling Walker Wheelchair * List name and contact numbers for known caregivers / representatives who currently or will assist patient after discharge: Alvino Saucedo [phone] * Verbal permission to speak to the caregivers and representatives has been obtained from the patient. No * Community resources currently utilized None * Additional services required to return to the preadmission environment? No * Can the patient safely return to the preadmission environment? Yes * Has this patient been hospitalized within the prior 30 days at any hospital? No Coverage Notice Reviewer: [id number] - Emmy Daly Notice Issued Date-Time: 07/26/2019 17:39 Notice Type: Patient Choice Letter Notice Delivered To: Patient Relationship to Patient: Self Detacher Name: Rosio Adames Delivery Method: HAND - Hand Delivered Bailey Days: Prior Verbal Notification: Recipient Understood Notice: Yes Recipient Signature: Yes Med Rec Note Co-signed by Attending: Coverage Notice Comment: Patient Choice Letter for [facility] signed by patient. Last DP export: 07/27/19 10:44 a Patient Name: ROSIO ADAMES Page [phone] at 1154 All edits/amendments must be made on the electronic document DICTATION DATE: 07/27/19 1155 ELECTRONIC ORGAN MECHANIC: MATHEW 07/27/19 1159 RPT#: [id number] DC DATE: STATUS: ADM IN [facility] [address] [place] [address] END OF REPORT
[2019-07-27 12:29] VITALS: BP 134/80
--- NOTE | 2019-07-27 12:50 | NUR ---
CODE MUSCLE CALLED TO PATIENT ROOM. PATIENT FOUND ON FLOOR BY ALONSO RAINEY. PATIENT STATED SHE SLID OUT OF BED BECAUSE SHE WAS TRYING TO SCOOT HER BS TABLE UP CLOSER TO HER WITH HER FEET AND THAT HER NONSKID SOCKS SLID AND DIDNT KEEP HER FROM SLIDING OUT OF BED. STATED SHE HIT HER BUTTOCKS ON THE FLOOR AND HER HEAD ON THE CHAIR. STATED NO PAIN, JUST A SMALL BIT TO HEAD. SKIN TEAR TO THE BACK VERY SMALL (SIZE OF A PEN HOLE) TO BACK. STATES NO PAIN. NOTIFIED COGNOS ARCHITECT AFTER GETTING PATIENT BACK INTO BED. TURNED BED ALARM BACK ON AND PATIENT STATED SHE DID NOT WANT IT ON. STATED SHE WANTED TO SIGN THE REFUSAL FORM BECAUSE SHE DOESNT WANT TO BE HELD PRISONER. EXPLAINED TO PATIENT THAT IT IS FOR HER SAFETY TO MAKE SURE SHE HAS SOMEONE AVAILABLE TO KEEP HER FROM FALLING WHEN SHE GETS UP. PATIENT STATED SHE DIDNT GET UP, THAT SHE SLID OUT OF BED AND THAT SHE CALLS IF SHE NEEDS UP. DOES NOT WANT BA AT THIS TIME. SLID SOCKS REMOVED AND NEW ONES PLACED. IV INTACT. CALL LIGHT WITHIN REACH.
--- NOTE | 2019-07-27 14:37 | NUR ---
REFUSING CT OF HEAD. STATED HER HEAD DOESNT HURT.
--- NOTE | 2019-07-27 14:42 | NUR ---
Rehab Note- Acute Inpatient Rehab prescreen order received. The patient is POD #1, will follow at this time for potential acute inpatient rehab stay prior to being discharged home. Thank you for this referral! Roseanna Loco RN Clinical Liaison, [facility] Rehab
--- NOTE | 2019-07-27 17:23 | NUR ---
PATIENT REFUSED TO HAVE BP TAKEN AT THIS TIME. STATED IT HURT HER ARM TOO MUCH AND SHE WOULD WAIT UNTIL LATER TO HAVE IT DONE.
[2019-07-27 20:15] VITALS: BP 150/73; BP 99/63
--- NOTE | 2019-07-27 20:20 | NUR ---
PATIENT RESTING IN BED WITH NO S/S OF DISTRESS AND DENIES NEEDS AT THIS TIME. BED IN LOWEST POSITION AND CALL LIGHT WITHIN REACH. ENCOURAGED THE PATIENT TO CALL IF SHE HAS NEEDS. WILL CONTINUE TO MONITOR.
--- NOTE | 2019-07-27 21:04 | NUR ---
ADMINISTERED MEDS PER ORDERS. BROUGHT PATIENT A FRESH ICE PACK AND WATER PER HER REQUEST. PATIENT DENIES OTHER NEEDS AT THIS TIME. BED IN LOWEST POSITION AND CALL LIGHT WITHIN REACH. ENCOURAGED THE PATIENT TO CALL IF SHE HAS NEEDS. WILL CONTINUE TO MONITOR.
[2019-07-28] VITALS: BP 110/59
--- NOTE | 2019-07-28 | NUR ---
PT RESTING WITH EYES CLOSED, AROUSES TO SOFT VERBAL STIMULATION, PT VERY UPSET THAT I WOKE HER UP FOR VS, VS OBTAINED, PT REQUESTS NO MORE VS TONIGHT, FRESH ICE PACK TO LEFT SHOULDER, DENIES FURTHER NEEDS, BED IN LOW POSITION, SIDE RAILS X 2, CALL LIGHT IN REACH
--- NOTE | 2019-07-28 07:10 | NUR ---
REC'D PT LAYING IN BED WITH EYES OPEN. NO ACUTE DISTRESS NOTED. PT PLESANT WITH NURSE. CALL LIGHT IN REACH, BED ALARM ACTIVE. SIDE RAILS 2X UP. WILL CONT PLAN OF CARE.
[2019-07-28 07:27] LABS: HEMOGLOBIN 10.9 g/dL (12-16); MCH 26.7 pg (26.0-34.0); MCHC 31.1 g/dL (31.0-37.0); MCV 85.6 fL (80.0-100.0); MEAN PLATELET VOLUME 10.1 fL (7.4-10.4); RBC 4.09 10x6/uL (4.00-5.40); RDW 15.6 % (11.5-14.5); WBC 12.8 10x3/uL (4.8-10.8)
--- NOTE | 2019-07-28 07:55 | NUR ---
ASSISTED PT IN REPOSITION TO SIT UP FOR BREAKFAST. PT TOLERATED OKAY. BED ALARM ACTIVE. CALL LIGHT WITH IN REACH.
--- NOTE | 2019-07-28 08:21 | NUR ---
OBTAINED PT VITALS SIGNS AND REPOSITIONED IN BED. MEDICATIONS GIVEN. PT REQUESTED A PAIN PILL. PAIN AT A 10 ON SCALE OF 1-10. SLING IN PLACE AND INTACT.
[2019-07-28 08:24] VITALS: BP 152/78
--- NOTE | 2019-07-28 08:29 | NUR ---
PATIENT REFUSED COLACE 100 MG STATING "OH I DONT NEED THAT. THERE ISN'T ANYTHING WRONG WITH MY BOWELS. THATS THE LAST THING YOU NEED IS ME RUNNING WITH THE RUNS." NURSE VERBALIZED UNDERSTAND HELD MEDICATION. PT STATED "THAT NURSE PRAC THAT CAME IN THIS MORNING SAID I COULD HAVE MY SLING TAKEN OFF SEVERAL TIMES TODAY." NURSE EXPLAINED I WOULD CHECK WITH THE SLOT TECHNICIAN AND READ THE NOTES. PT STATED "WELL I DONT ALWAYS LIE BUT IM NOT LYING NOW." NURSE STATED SHE UNDERSTOOD AND THAT I WOULD CHECK JUST TO BE SURE. PT REQUESTED A PAIN PILL WELL. NURSE EXPLAINED THAT SHE WOULD BE ALLOWED TO HAVE A PAIN PILL AT 0831 FOR A PAIN PILL.
[2019-07-28] MEDS ORDERED: PERCOCET 10-321 EAC1 PO (10:31)
--- NOTE | 2019-07-28 11:19 | NUR ---
PT LAYING IN BED WITH EYES CLOSED. NO DISTRESS NOTED.
--- NOTE | 2019-07-28 13:36 | MORECARE ---
CASE MANAGEMENT DISCHARGE SUMMARY PATIENT: ROSIO ADAMES UNIT: [id number] ADM DATE: 07/26/19 AGE: 63 : 51 SEX: F ROOM/BED: D.1209 AUTHOR: MAISHA,DOC PHYSICIAN: REFERRING PHYSICIAN: MANUEL CORRIGAN MD DATE OF SERVICE: 07/28/19 Discharge Plan Patient Name: ROSIO ADAMES Facility: [facility]:[place] : 1955 Planned Disposition: Home or Self Care Anticipated Discharge Date: Discharge Date: Expected LOS: Initial Reviewer: [email or web address] Initial Review Date: 07/26/2019 Generated: 07/28/19 2:36 pm Comments DCP- Discharge Planning Updated by [email or web address]: Emmy Daly on 07/28/19 12:[address] Per Roseanna with NURSING STAFF DEVELOPMENT COORDINATOR [facility], patient has been accepted to admit there today. Patient's nurse aware of same. DCP- Discharge Planning Updated by [email or web address]: Aleshia Cherry on 07/27/19 10:[address] PT informed CM that he did not recommend the patient going home alone. She is unable to use her left arm and he is concerned she is not going to be able to manage safely at home alone. CM also received a call from Alvino her emergency contact (patient gave cm permission to speak to Alvino) who is also concerned about patients dc home alone. Alvino called and spoke to patient and Alvino state the patient is agreeable to go to rehab. CM met with patient and she is only agreeable to IN rehab. She stated she will not go to a long term. ABDON form presented, explained,and signed by the patient for 1. NURSING STAFF DEVELOPMENT COORDINATOR IN Rehab and 2. [facility] IN Rehab. Telephone order received from Ana Romero APRN for Rehab Prescreening Consult. CM ordered consult and will await admission determination. Aleshia Cherry RN,[facility] DCP- Discharge Planning Updated by [id number]: Emmy Daly on 07/26/19 3:[address] CM met with patient to discuss initial discharge planning. Patient is in agreement to proceed with the assessment. Patient reports that she lives at home, alone and Independent with ADL's. Patient is alert/oriented. Stairs/steps: 6 w/rails. PCP: Dr. Whittaker. Pharmacy: [facility]. 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 HHS: No. DME: Walker, W/C, BSC, Shower bench, UD, C-pap. Patient does not give permission to speak with family members/care givers. Emergency contact: Alvino Saucedo [phone]. Patient is Independent with all ADL's, medication management ELECTRICIAN APPRENTICE POWERHOUSE. CM discussed the availability of HH, Rehab, DME services. Patient plans to use [facility] when the MD agrees. Patient denies being hospitalized within the past 30 days. Patient denies the use of community resources ELECTRICIAN APPRENTICE POWERHOUSE. Transportation at time of discharge: A friend will drive her home and take her to her appointments. CM will assist with DC plans/needs PRN. DCPIA - Discharge Planning Initial Assessment Updated by [id number]: Emmy Daly on 07/26/19 5:04 pm * Is the patient Alert and Oriented? Yes * How many steps to enter\exit or inside your home? 6 w/rails * PCP DR. Whittaker * Pharmacy [facility] * Preadmission Environment Home Alone * ADLs Independent * Equipment Bedside Commode BIPAP Nebulizer Rolling Walker Wheelchair * List name and contact numbers for known caregivers / representatives who currently or will assist patient after discharge: Alvino Saucedo [phone] * Verbal permission to speak to the caregivers and representatives has been obtained from the patient. No * Community resources currently utilized None * Additional services required to return to the preadmission environment? No * Can the patient safely return to the preadmission environment? Yes * Has this patient been hospitalized within the prior 30 days at any hospital? No Coverage Notice Reviewer: [id number] - Emmy Daly Notice Issued Date-Time: 07/26/2019 17:39 Notice Type: Patient Choice Letter Notice Delivered To: Patient Relationship to Patient: Self Braid Cutter Name: Rosio Adames Delivery Method: HAND - Hand Delivered Bailey Days: Prior Verbal Notification: Recipient Understood Notice: Yes Recipient Signature: Yes Med Rec Note Co-signed by Attending: Coverage Notice Comment: Patient Choice Letter for [facility] signed by patient. Reviewer: [id number] Francine Cherry Notice Issued Date-Time: 07/27/2019 13:15 Notice Type: Patient Choice Letter Notice Delivered To: Patient Relationship to Patient: Braid Cutter Name: Delivery Method: - Bailey Days: Prior Verbal Notification: Recipient Understood Notice: Yes Recipient Signature: Yes Med Rec Note Co-signed by Attending: Coverage Notice Comment: 1. [facility] IN Rehab 2. [facility] IN Rehab Last DP export: 07/27/19 10:54 a Patient Name: ROSIO ADAMES Page [phone] at 1336 All edits/amendments must be made on the electronic document DICTATION DATE: 07/28/19 1336 HORSE BREAKER: MATHEW 07/28/19 1336 RPT#: [id number] DC DATE: STATUS: ADM IN [facility] [address] [place] [address] END OF REPORT
--- NOTE | 2019-07-28 14:33 | NUR ---
PATIENT C/O OF PAIN SHOULDER. STATED "SHE WANTED TO CATCH THE PAIN BEFORE IT GOT TO FAR." PERCOCET 10/325 MG PER PRN ORDER. WILL REASSES FOR EFFECTIVENESS.
--- NOTE | 2019-07-28 14:39 | NUR ---
ASSISTED PATIENT TO TOILET. TOLERATED WELL.
--- NOTE | 2019-07-28 18:03 | NUR ---
PT TRANSFERRED TO REHAB UNIT IN [facility]. PT IS STABLE AT TIME OF DISCHARGE. PT IN W/C TO REHAB. DRESSING CHANGED TO LEFT SHOULDER WITH MODERATE PREVIOUS BLEEDING NOTED. NO DRAINAGE FROM WOUND. ZIPLINE INTACT AND WITH NORMAL COLOR. NEW DRESSING APPLIED. PT BELONGINGS PHONE, CLOTHES AND GLASSES IN VARIOUS BAGS WERE LEFT IN PT ROOM ON REHAB UNIT. PT DID REQUIRE ASSISTANCE FROM W/C TO W/C. NO C/O OF PAIN. PAPERWORK GIVEN TO REHAB STAFF.
--- NOTE | 2019-07-29 08:45 | MORECARE ---
CASE MANAGEMENT DISCHARGE SUMMARY PATIENT: ROSIO ADAMES UNIT: [id number] ADM DATE: 07/26/19 AGE: 63 : 51 SEX: F ROOM/BED: D.1209 AUTHOR: MAISHA,DOC PHYSICIAN: REFERRING PHYSICIAN: MANUEL CORRIGAN MD DATE OF SERVICE: 07/29/19 Discharge Plan Patient Name: ROSIO ADAMES Facility: [facility]:[place] : 1955 Planned Disposition: Home or Self Care Anticipated Discharge Date: Discharge Date: 07/28/2019 Expected LOS: Initial Reviewer: [email or web address] Initial Review Date: 07/26/2019 Generated: 07/29/19 9:44 am Comments DCP- Discharge Planning Updated by [id number]: Emmy Daly on 07/28/19 12:[address] Per Roseanna with PROJECT DESIGN ENGINE[facility], patient has been accepted to admit there today. Patient's nurse aware of same. DCP- Discharge Planning Updated by [id number]: Aleshia Cherry on 07/27/19 10:[address] PT informed CM that he did not recommend the patient going home alone. She is unable to use her left arm and he is concerned she is not going to be able to manage safely at home alone. CM also received a call from Alvino her emergency contact (patient gave cm permission to speak to Alvino) who is also concerned about patients dc home alone. Alvino called and spoke to patient and Alvino state the patient is agreeable to go to rehab. CM met with patient and she is only agreeable to IN rehab. She stated she will not go to a assisted. ABDON form presented, explained,and signed by the patient for 1. PROJECT DESIGN ENGINEER IN Rehab and 2. [facility] IN Rehab. Telephone order received from Ana Romero APRN for Rehab Prescreening Consult. CM ordered consult and will await admission determination. Aleshia Cherry RN,[facility] DCP- Discharge Planning Updated by [id number]: Emmy Daly on 07/26/19 3:[address] CM met with patient to discuss initial discharge planning. Patient is in agreement to proceed with the assessment. Patient reports that she lives at home, alone and Independent with ADL's. Patient is alert/oriented. Stairs/steps: 6 w/rails. PCP: Dr. Whittaker. [facility]. Patient states she has been able to obtain all of her prescribed medications MANAGER WEB. HHS: No. DME: Walker, W/C, BSC, Shower bench, UD, C-pap. Patient does not give permission to speak with family members/care givers. Emergency contact: Alvino Saucedo [phone]. Patient is Independent with all ADL's, medication management MANAGER WEB. CM discussed the availability of HH, Rehab, DME services. Patient plans to use [facility] when the MD agrees. Patient denies being hospitalized within the past 30 days. Patient denies the use of community resources MANAGER WEB. Transportation at time of discharge: A friend will drive her home and take her to her appointments. CM will assist with DC plans/needs PRN. DCPIA - Discharge Planning Initial Assessment Updated by [id number]: Emmy Daly on 07/26/19 5:04 pm * Is the patient Alert and Oriented? Yes * How many steps to enter\exit or inside your home? 6 w/rails * PCP DR. Whittaker * Pharmacy [facility] * Preadmission Environment Home Alone * ADLs Independent * Equipment Bedside Commode BIPAP Nebulizer Rolling Walker Wheelchair * List name and contact numbers for known caregivers / representatives who currently or will assist patient after discharge: Alvino Saucedo [phone] * Verbal permission to speak to the caregivers and representatives has been obtained from the patient. No * Community resources currently utilized None * Additional services required to return to the preadmission environment? No * Can the patient safely return to the preadmission environment? Yes * Has this patient been hospitalized within the prior 30 days at any hospital? No Coverage Notice Reviewer: [id number] Francine Daly Notice Issued Date-Time: 07/26/2019 17:39 Notice Type: Patient Choice Letter Notice Delivered To: Patient Relationship to Patient: Self Field Education Coordinator Name: Rosio Adames Delivery Method: HAND - Hand Delivered Bailey Days: Prior Verbal Notification: Recipient Understood Notice: Yes Recipient Signature: Yes Med Rec Note Co-signed by Attending: Coverage Notice Comment: Patient Choice Letter for [facility] signed by patient. Reviewer: [id number] Francine Cherry Notice Issued Date-Time: 07/27/2019 13:15 Notice Type: Patient Choice Letter Notice Delivered To: Patient Relationship to Patient: Field Education Coordinator Name: Delivery Method: - Bailey Days: Prior Verbal Notification: Recipient Understood Notice: Yes Recipient Signature: Yes Med Rec Note Co-signed by Attending: Coverage Notice Comment: 1. [facility] Rehab [facility]. [facility] Reviewer: [id number] Francine Daly Notice Issued Date-Time: 07/28/2019 14:13 Notice Type: IM Discharge Notice Notice Delivered To: Patient Relationship to Patient: Self Field Education Coordinator Name: Rosio Adames Delivery Method: HAND - Hand Delivered Bailey Days: Prior Verbal Notification: Recipient Understood Notice: Yes Recipient Signature: Yes Med Rec Note Co-signed by Attending: Coverage Notice Comment: DC IMM delivered to and signed by patient. Original to patient and one placed on the chart. Last DP export: 07/28/19 12:36 p Patient Name: ROSIO ADAMES Page [phone] at 0845 All edits/amendments must be made on the electronic document DICTATION DATE: 07/29/19843 POT PUNCHER: MATHEW 07/29/1946 RPT#: [id number] DC DATE:07/28/19 STATUS: DIS IN [facility] [address] [place] [address] END OF REPORT
== END 2019-07-28 18:15 | DRG 483 ==
LOC: D.SDCHOLD 07-26 08:45 → D.M3 07-26 14:01 → D.SDCHOLD 07-26 16:00 → D.M3 07-28 18:15
PROVIDERS: ADMIT Orthopaedic Surgery; ATTEND Orthopaedic Surgery
PROC: 0RRK00Z Replacement of Left Shoulder Joint with Reverse Ball and Socket Synthetic Substitute, Open Approach (ICD-10-PCS; principal; 2019-07-26 08:45)
DX: M75.102 Unspecified rotator cuff tear or rupture of left shoulder, not specified as traumatic (principal); E11.9 Type 2 diabetes mellitus without complications; I10 Essential (primary) hypertension; J44.9 Chronic obstructive pulmonary disease, unspecified

== ENCOUNTER 2019-07-28 16:57 | Inpatient (IN) | payer MEDICARE ==
[~2019-07-28] VITALS: Ht 165.1 cm; Wt 99.8 kg
[~2019-07-28 16:57] MED LIST changes: +ZANAFLEX4 MG PO
--- NOTE | 2019-07-28 18:45 | NUR ---
BEDSIDE REPORT COMPLETE. NEW ADMIT TO FLOOR. PT SITTING UP IN BED WATCHING TV. ALERT AND ORIENTED X4. LEFT SHOULDER DRSG C/D/I. SLING ON LEFT SHOULDER. PT REQUESTED TO SIGN BED ALARM WAIVER AND PAIN MEDICATION. DENIES ANY OTHER NEEDS. CL IN REACH. FALL PRECAUTIONS IN PLACE. WILL CONTINUE TO MONITOR
[2019-07-28 22:06] VITALS: BP 125/75
[2019-07-28 22:38] VITALS: BP 125/75; BMI 36.6
--- NOTE | 2019-07-29 02:07 | NUR ---
PT LYING IN BED EYES CLOSED RESTING. RR EVEN AND UNLABORED. O2 @ 4L VIA NC. CL IN REACH
--- NOTE | 2019-07-29 04:56 | NUR ---
PT LYING IN BED SUPINE, HOB 15 DEGREES, EYES CLOSED RESTING. RR EVEN AND UNLABORED. CL IN REACH
[2019-07-29 06:02] LABS: BASOPHILS 0.3 % (0-2); EOSINOPHILS 1.6 % (0-7); HEMATOCRIT 37.4 % (36.0-48.0); HEMOGLOBIN 11.5 g/dL (12-16); IMMATURE GRANULOCYTES 0.2 % (0-5); LYMPHOCYTES 45.8 % (15-50); MCH 26.6 pg (26.0-34.0); MCHC 30.7 g/dL (31.0-37.0); MCV 86.6 fL (80.0-100.0); MEAN PLATELET VOLUME 10.4 fL (7.4-10.4); MONOCYTES 11.4 % (2-11); NEUTROPHILS 40.7 % (40-80); PLATELET COUNT 543 10x3/uL (130-400); RBC 4.32 10x6/uL (4.00-5.40); RDW 15.6 % (11.5-14.5); WBC 11.6 10x3/uL (4.8-10.8)
[2019-07-29 06:18] LABS: CALC OSMOLALITY 283 mosm/kg (275-300); CALCIUM 8.6 mg/dL (8.5-10.1); CHLORIDE - SERUM 105 mmol/L (98-107); CREATININE - SERUM 0.7 mg/dL (0.6-1.3); GLUCOSE 140 mg/dL (74-106); POTASSIUM - SERUM 3.7 mmol/L (3.5-5.1); SODIUM 142 mmol/L (136-145); UREA NITROGEN 11 mg/dL (7-18); eGFR NON AFRICAN AMERICAN 89 mL/min (90-120)
--- NOTE | 2019-07-29 07:24 | NUR ---
PT RESTING IN BED WITH EYES OPEN CALL LIGHT IN REACH WILL MONITER
--- NOTE | 2019-07-29 12:00 | NUR ---
I have reviewed this patient and I concur with the Shift Assessment completed by the Licensed Practical Nurse today this shift.
[2019-07-29 14:54] VITALS: Ht 165.1 cm; Wt 99.8 kg
--- NOTE | 2019-07-29 18:36 | NUR ---
PT RESTING IN BED WITH EYES OPEN CALL LIGHT IN REACH NO PROBLEMS WILL MONITER
[2019-07-29 20:00] VITALS: BP 132/79
--- NOTE | 2019-07-29 20:10 | NUR ---
PATIENT PAIN LEVEL 8 AFTER RECEIVING PAIN MEDICATION. CALL LIGHT WITHIN REACH. WILL CONTINUE TO MONITOR.
--- NOTE | 2019-07-30 02:35 | NUR ---
I have reviewed this patient and I concur with the Shift Assessment completed by the Licensed Practical Nurse today this shift.
--- NOTE | 2019-07-30 03:36 | NUR ---
PATIENT EYES CLOSED. RESPIRATIONS 18 & EVEN. SLING ON LEFT ARM. BED LOW. ALARM ON. CALL LIGHT WITHIN REACH. WILL CONTINUE TO MONITOR.
[2019-07-30 07:25] LABS: BASOPHILS 0.3 % (0-2); HEMOGLOBIN 11.1 g/dL (12-16); IMMATURE GRANULOCYTES 0.2 % (0-5); LYMPHOCYTES 28.8 % (15-50); MCH 26.4 pg (26.0-34.0); MCHC 30.8 g/dL (31.0-37.0); MCV 85.5 fL (80.0-100.0); MEAN PLATELET VOLUME 9.4 fL (7.4-10.4); MONOCYTES 10.1 % (2-11); NEUTROPHILS 58.6 % (40-80); PLATELET COUNT 504 10x3/uL (130-400); RBC 4.21 10x6/uL (4.00-5.40); RDW 15.6 % (11.5-14.5); WBC 13.5 10x3/uL (4.8-10.8)
[2019-07-30 07:33] LABS: CALC OSMOLALITY 282 mosm/kg (275-300); CALCIUM 8.9 mg/dL (8.5-10.1); CARBON DIOXIDE 31.2 mmol/L (21.0-32.0); CHLORIDE - SERUM 104 mmol/L (98-107); CREATININE - SERUM 0.7 mg/dL (0.6-1.3); GLUCOSE 138 mg/dL (74-106); SODIUM 141 mmol/L (136-145); UREA NITROGEN 13 mg/dL (7-18); eGFR NON AFRICAN AMERICAN 89 mL/min (90-120)
--- NOTE | 2019-07-30 09:48 | NUR ---
PT AM MEDS ADMINISTERED. PT DENIES NEEDS. WCTM.
[2019-07-30 11:25] VITALS: BP 132/67
--- NOTE | 2019-07-30 18:37 | NUR ---
PT RESTING IN BED, DENIES NEEDS. WCTM.
[2019-07-30 20:00] VITALS: BP 94/49
--- NOTE | 2019-07-30 21:37 | NUR ---
PATIENT RECEIVED SITTING UP IN BED. SLING ON LEFT ARM. ASSESSMENT & VITAL SIGNS DONE. BED LOW. CALL LIGHT WITHIN REACH. WILL CONTINUE TO MONITOR.
--- NOTE | 2019-07-31 02:03 | NUR ---
PATIENT USED CALL LIGHT FOR ASSIST. PAIN LEVEL 5. PATIENT GIVEN PAIN MEDICATION. CALL LIGHT WITHIN REACH. WILL CONTINUE TO MONITOR.
--- NOTE | 2019-07-31 02:53 | NUR ---
PATIENT EYES CLOSED. RESPIRATIONS 18 & EVEN. BED LOW.CALL LIGHT WITHIN REACH. WILL CONTINUE TO MONITOR.
--- NOTE | 2019-07-31 06:07 | NUR ---
I have reviewed this patient and I concur with the Shift Assessment completed by the Licensed Practical Nurse today this shift.
[2019-07-31 07:30] VITALS: BP 122/75
--- NOTE | 2019-07-31 07:40 | NUR ---
BECOMES VERY AGGITATED WHEN GETTING OUT OF BED BECAUSE BED ALARM IS ON.STATES"IF YOU PEOPLE WOULD LOOK AT THE PATIENTS PAPERS YOU WOULD KNOW I SIGNED A PAPER RELIEVING THE HOSPITAL IF I FALL".USES THE F WORD AND STATES "I WANT THAT REMOVED FROM MY BED RIGHT NIGHT".ALARM TURNED OFF AND REMOVED FROM BED.
--- NOTE | 2019-07-31 08:40 | NUR ---
SITTING ON SIDE OF BED.SLING INTACT TO LEFT ARM ASSESSMENT COMPLETED.C/O LEFT SHOULDER PAIN,RATES PAIN A 6.PERCOCET FOR PAIN PER ORDERS.CL IN EASY REACH.BED IN LOW POSITION.WILL CONTINUE WITH CURRENT PLAN OF CARE.
--- NOTE | 2019-07-31 14:53 | NUR ---
ICE PACK TO LEFT SHOULDER AND PERCOCET GIVEN FOR C/O PAIN RATED A 10..
--- NOTE | 2019-07-31 15:35 | NUR ---
IN TREATMENT ROOM.DENIES PAIN.
--- NOTE | 2019-07-31 19:28 | NUR ---
PT SITTING UP ON SIDE OF BED. CL IN REACH. DENIES NEEDS AT THIS TIME. BED IN LOW SIDE RAILS X2. RESP EVEN AND UNLABORED. A/O X4. LUNGS CLEAR. BOWEL ACTIVE X4. WILL CONTINUE TO MONITOR.
[2019-07-31 21:00] VITALS: BP 83/59
--- NOTE | 2019-08-01 01:34 | NUR ---
I have reviewed this patient and I concur with the Shift Assessment completed by the Licensed Practical Nurse today this shift.
--- NOTE | 2019-08-01 17:47 | NUR ---
PT RESTING IN BED WITH EYES OPEN WILL MONITER
--- NOTE | 2019-08-01 19:25 | NUR ---
PT SITTING UP ON SIDE OF BED. CL IN REACH. DENIES NEEDS OR PAIN AT THIS TIME. BED IN LOW SIDE RAILS X2. A/O X4. LUNGS CLEAR. BOWEL ACTIVE X4. RESP EVEN AND UNLABORED. WILL CONTINUE TO MONITOR.
[2019-08-01 20:00] VITALS: BP 107/67
--- NOTE | 2019-08-01 22:00 | NUR ---
SHOWER GIVEN. TOLERATED WELL. BACK IN BED. WCTM
--- NOTE | 2019-08-02 03:24 | NUR ---
I have reviewed this patient and I concur with the Shift Assessment completed by the Licensed Practical Nurse today this shift.
[2019-08-02 06:49] LABS: CALC OSMOLALITY 278 mosm/kg (275-300); CALCIUM 9.3 mg/dL (8.5-10.1); CARBON DIOXIDE 31.8 mmol/L (21.0-32.0); CHLORIDE - SERUM 101 mmol/L (98-107); CREATININE - SERUM 0.8 mg/dL (0.6-1.3); GLUCOSE 108 mg/dL (74-106); POTASSIUM - SERUM 3.9 mmol/L (3.5-5.1); SODIUM 138 mmol/L (136-145); UREA NITROGEN 17 mg/dL (7-18); eGFR NON AFRICAN AMERICAN 76 mL/min (90-120)
--- NOTE | 2019-08-02 07:48 | NUR ---
ALERT AND OREINTED. RESP EVEN AND ULABORED. EATING BREAKFAST IN THERAPY ROOM.
[2019-08-02 07:57] LABS: HEMATOCRIT 37.9 % (36.0-48.0); HEMOGLOBIN 11.8 g/dL (12-16); MCH 25.8 pg (26.0-34.0); MCHC 31.1 g/dL (31.0-37.0); MCV 82.8 fL (80.0-100.0); MEAN PLATELET VOLUME 12.4 fL (7.4-10.4); RBC 4.58 10x6/uL (4.00-5.40); RDW 15.5 % (11.5-14.5); WBC 9.7 10x3/uL (4.8-10.8)
[2019-08-02 08:00] LABS: PLATELET COUNT 321 10x3/uL (130-400)
[2019-08-02 09:48] VITALS: BP 119/76
[2019-08-02 10:32] LABS: ANISOCYTOSIS OCC; EOSINOPHILS 9 % (0-7); LYMPHOCYTES 56 % (15-50); MONOCYTES 3 % (2-11); NEUTROPHILS 32 % (40-80); PLATELET ESTIMATE NORMAL; PLATELET MORPHOLOGY PLT CLUMPS PRESENT
[2019-08-02 10:33] LABS: ROULEAUX OCC
--- NOTE | 2019-08-02 14:58 | NUR ---
RESTING IN BED. NO DISTRESS NOTED. RESP EVEN AND UNLABORED. CL IN REACH.
--- NOTE | 2019-08-02 16:11 | NUR ---
PATIENT ADMITTED TO REHAB FROM ACUTE FLOOR. DR. HERNANDEZ FROM [employer] IS PATIENT PCP.PATIENT HAS BEEN A CLIENT OF [address]. SHE HAS AN AIDE THAT COMES TO ASSIT HER FROM [facility]. DME AT HOME IS A BEDSIDE COMMODE, WALKER AND A WHEELCHAIR. WILL CONTINUE TO FOLLOW WITH PATIENT AND ASSIST WITH NEEDS.
--- NOTE | 2019-08-02 16:47 | RHP ---
PATIENT: ROSIO BENJAMIN MEDICAL RECORD: [id number] ACCOUNT: [id number] LOCATION:[id number] : 51 ADMISSION DATE: 07/28/19 REHABILITATION HISTORY AND PHYSICAL EXAMINATION POST ADMISSION PHYSICIAN EXAMINATION POST ADMISSION PHYSICAL EXAMINATION AND HISTORY AND PHYSICAL DATE OF ADMISSION: 07/28/2019. ADMITTING DIAGNOSIS: Debility secondary to muscular wasting and disuse atrophy. HISTORY OF PRESENT ILLNESS: The patient is a 63-year-old obese female, who was admitted on July 26 for an elective left revision of total shoulder. She has a history of diabetes and neuropathy. The patient has asthma, sleep apnea. She refuses to use of her BiPAP. She has got a bladder pacemaker, acid reflux, chronic back pain, anxiety, depression. Had a history of pelvic fracture, right femur fracture, and insomnia. The patient had T&A, left hip replacement. She has had splenectomy in the past, pelvic fracture with plate placement. She has been seen and followed for PT during her acute hospital stay. They recommended acute hospital before being discharged home. She has had some blood loss anemia, respiratory complications requiring supplemental O2, begin DuoNeb updrafts. She needs to be monitored closely due to her increased heart rate, receiving supplemental oxygen. Monitor for sliding scale for her blood sugars. She has had weakness, balance deficits, decreased activity tolerance, decreased range of motion, decreased strength, gait disturbance, limited safety awareness, medical complexity, risks for falls, and has problems with cues for use of her equipment. She has got low endurance, unsteady gait and balance, fatigues easily, inability to care for herself, and lives alone with self-care deficits. These are all barriers to her discharge home. She lives at home alone and was completely independent with ADLs and mobility. She is currently set up for max assist for ADLs with her left upper extremity in a sling, and she is mod-to-max assist with her mobility. She would like to return home at her prior level of functioning or better. Comorbidities include osteoarthritis. She has got rotator cuff tear. She has got obesity, acute pain, diabetes, hypertension, debility, gait disturbance, unsteady gait, and self-care deficits. These are all her comorbidities. PAST MEDICAL HISTORY: Significant for neuropathy. She has got a history of allergies. She has got a history of diabetes, hypertension, COPD, asthma, sleep apnea. She has got a history of overactive bladder, acid reflux, arthritis, chronic back pain, joint replacement, pelvic fracture, rib fractures, femur fracture, anxiety, depression, and insomnia. PAST SURGICAL HISTORY: Includes gallbladder surgery, had a tonsillectomy and adenoidectomy. She has had left knee replacement. She has had a rotator cuff repair, bilateral acromioclavicular decompressions. She has had right total knee, left total hip, splenectomy, InterStim placed, hernia repair. She has had a hammertoe fixed and pelvic fracture with plate repair. ALLERGIES: PENICILLIN, SULFA AND SHRIMP. CURRENT MEDICATIONS: Include lisinopril, she is on 10 mg daily, TriCor 145 mg daily. She is on metformin 1000 mg b.i.d. with meals, Desyrel 150 mg at bedtime, Seroquel 200 mg at bedtime. She is on Brovana 15 mcg b.i.d., HISTORY AND PHYSICAL [id number] ROSIO BENJAMIN budesonide 0.5 mg b.i.d., Ventolin updrafts as needed, tizanidine 4 mg every 8 hours p.r.n., and Percocet 10/325 one tab every 4 hours p.r.n. HABITS: No alcohol or tobacco use. FAMILY HISTORY: Noncontributory. SOCIAL HISTORY: The patient hopes to return back home and get back to her prior level of functioning. REVIEW OF SYSTEMS: GENERAL: Does complain of weakness and fatigue. HEENT: Denies cold, cough, or congestion. CARDIOVASCULAR: Denies any chest pain. PHYSICAL EXAMINATION: VITAL SIGNS: Stable, afebrile. GENERAL: A morbidly obese female, in no acute distress, alert upon exam. HEENT: Normocephalic and atraumatic. Mucosa moist. NECK: Supple. No lymphadenopathy. LUNGS: Clear in the upper hicks and decreased breath sounds in the bases. CARDIOVASCULAR: Regular rate and rhythm. She does have multiple PVCs. ABDOMEN: Soft, benign, and nondistended. Positive bowel sounds times 4. EXTREMITIES: No clubbing, cyanosis or edema. Her shoulder is in a sling at this time. NEUROLOGIC: She is noted to be limited by her obesity and her weakness. LABORATORY DATA: White count is 11.6, H&H of 11 and 37, and platelet count was noted to be 543. Her sodium is 142, potassium 3.7, BUN and creatinine of 11 and 0.7, blood sugar is noted to be 140. ASSESSMENT: This is a 63-year-old female patient admitted to the rehab with a working diagnosis of debility secondary to recent total shoulder replacement and multiple surgeries in the past. The patient has potential to make improvement. We will institute the following multidisciplinary therapies including, but not limited to, physical, occupational, respiratory, speech, nutritional services, prosthetics, and orthotics. Given her complex medical condition and risk for more complications, rehabilitation services cannot be provided at a lower level of care such as a skilled nurse facility. PLAN: 1. Admit to [facility] for an inpatient therapy to include the following disciplines; A. Physical therapy to improve gait, all transfer skills, and bed mobility to modified independent level. B. Occupational therapy to improve activities of daily living. C. Case management to assist with discharge planning and placement options. D. Nutrition to assist with nutritional needs. E. Rehabilitation nursing to assist in monitoring the patient's underlying medical conditions and to assist with any type of bowel or bladder management. 2. Her current medications and medical care will be continued. 3. We will see how she does on her current pain medications including Percocet. 4. We will work on her activity level. Follow her blood sugars and I will see again in the a.m. HISTORY AND PHYSICAL [id number] ROSIO BENJAMIN TRANSINT:[id number] Voice Confirmation ID: [id number] DOCUMENT ID: [id number] PARKER notes whether there has been none or any medical/functional change since admission: - No change since prescreen. PARKER attests patient continues to be appropriate for IRF: - Continues to be appropriate. JAGJIT DILLARD MD at 1647 CC: [id number] DICTATION DATE: 07/29/19 0851 AUTOMOTIVE WORKER: 07/29/19 1007 ADM IN [place] [id number] [place] [address]
--- NOTE | 2019-08-02 17:14 | NUR ---
NO CHANGE IN ASSESSMENT. NO C/O PAIN. CL IN REACH.
[2019-08-02 20:41] VITALS: BP 110/80
--- NOTE | 2019-08-02 22:31 | NUR ---
PATIENT RECEIVED SITTING UP IN BED WATCHING TV. ASSESSMENT & VITAL SIGNS DONE. SLING ON LEFT ARM. NO C/O PAIN OR DISTRESS AT THIS TIME. CALL LIGHT WITHIN REACH. WILL CONTINUE TO MONITOR.
--- NOTE | 2019-08-03 01:13 | NUR ---
I have reviewed this patient and I concur with the Shift Assessment completed by the Licensed Practical Nurse today this shift.
--- NOTE | 2019-08-03 03:09 | NUR ---
PATIENT EYES CLOSED. RESPIRATIONS 18 & EVEN. BED LOW. CALL LIGHT WITHIN REACH. WILL CONTINUE TO MONITOR.
--- NOTE | 2019-08-03 09:14 | NUR ---
Nutrition Follow-up: Diet: Diabetic PO intake: ~96% average x last 9 meals Last BM: 08/02/19. WT: 220# (07/29/19) Meds noted: metformin. Labs noted: Glu 108(H) Recommend continue current diet. Took food preferences from patient, will update diet order. RD following.
--- NOTE | 2019-08-03 11:08 | NUR ---
I have reviewed this patient and I concur with the Shift Assessment completed by the Licensed Practical Nurse today this shift.
[2019-08-03 15:02] VITALS: BP 136/61
--- NOTE | 2019-08-03 19:46 | NUR ---
PATIENT RECEIVED SITTING UP IN BED. ASSESSMENT & VITAL SIGNS DONE. SLING ON LEFTARM. NO C/O PAIN OR DISTRESS. BED LOW. CALL LIGHT WITHIN REACH. WILL CONTINUE TO MONITOR.
[2019-08-03 22:53] VITALS: BP 111/63
[2019-08-04 00:07] VITALS: BP 111/63
--- NOTE | 2019-08-04 03:46 | NUR ---
PATIENT EYES CLOSED. RESPIRATIONS 18 & EVEN. LEFT ARM ON PILLOW. BED LOW. CALL LIGHT WITHIN REACH. WILL CONTINUE TO MONITOR.
--- NOTE | 2019-08-04 07:56 | NUR ---
PT RESTING IN BED WITH EYES OPEN CALL LIGHT IN REACH WILL MONITER
[2019-08-04 08:52] LABS: HEMATOCRIT 35.1 % (36.0-48.0); HEMOGLOBIN 10.7 g/dL (12-16); MCH 25.7 pg (26.0-34.0); MCHC 30.5 g/dL (31.0-37.0); MCV 84.2 fL (80.0-100.0); MEAN PLATELET VOLUME 9.7 fL (7.4-10.4); RBC 4.17 10x6/uL (4.00-5.40); RDW 15.5 % (11.5-14.5)
[2019-08-04 09:07] LABS: CALC OSMOLALITY 282 mosm/kg (275-300); CARBON DIOXIDE 30.7 mmol/L (21.0-32.0); CHLORIDE - SERUM 104 mmol/L (98-107); CREATININE - SERUM 0.8 mg/dL (0.6-1.3); GLUCOSE 94 mg/dL (74-106); POTASSIUM - SERUM 4.2 mmol/L (3.5-5.1); SODIUM 140 mmol/L (136-145); UREA NITROGEN 23 mg/dL (7-18); eGFR NON AFRICAN AMERICAN 76 mL/min (90-120)
[2019-08-04 09:23] LABS: PLATELET COUNT 706 10x3/uL (130-400)
--- NOTE | 2019-08-04 12:00 | NUR ---
I have reviewed this patient and I concur with the Shift Assessment completed by the Licensed Practical Nurse today this shift.
[2019-08-04 14:25] LABS: ACANTHOCYTES OCC; ANISOCYTOSIS OCC; EOSINOPHILS 5 % (0-7); LYMPHOCYTES 29 % (15-50); MONOCYTES 11 % (2-11); NEUTROPHILS 54 % (40-80); PLATELET ESTIMATE INCREASED
--- NOTE | 2019-08-04 15:14 | NUR ---
Nutrition Follow-up: Received call from diet office that patient wanted to discuss her diet with RD. Patient was upset that she was not receiving all the foods that she was ordering on her menu. Explained to her that she is on a consistent carbohdrate/diabetic diet and is restricted to only 5 servings of carbohydrates per meal. Used menu as demonstration to show her what foods have carbohydrates and how to count them as she is filling her menu out. She was also wanting Boost with all meals. Explained that she was eating well and did not need the extra calories. Also explained that Boost has 3 servings of CHO per bottle and that it would decrease her other CHO choices for that meal to only 3. Patient states that she understood and request that I bring her a list of CHO containing foods tomorrow. RD will continue to follow.
--- NOTE | 2019-08-04 16:12 | NUR ---
CARE TEAM MEETING: PATIENT IS PROGRESSING IN THERAPY. HER TENATIVE DISCHARGE DATE IS 08/10/2019. WILL CONTINUE TO FOLLOW WITH PATIENT.
--- NOTE | 2019-08-04 17:10 | NUR ---
PT RESTING IN BED WITH EYES OPEN CALL LIGHT IN REACH NO PROBLEMS WILL MONITER
--- NOTE | 2019-08-04 18:55 | NUR ---
BEDSIDE REPORT COMPLETE. PT SITTING UP ON SIDE OF BED. ALERT AND ORIENTED X4. DENIES ANY NEEDS OR PAIN. NO SIGNS OF ACUTE DISTRESS NOTED. CL IN REACH. FALL PRECAUTIONS IN PLACE. WILL CONTINUE TO MONITOR
[2019-08-04 21:20] VITALS: BP 155/62
--- NOTE | 2019-08-05 01:22 | NUR ---
PT LYING IN BED SUPINE EYES CLOSED RESTING. NO SIGNS OF ACUTE DISTRESS NOTED. CL IN REACH
--- NOTE | 2019-08-05 04:31 | NUR ---
PT LYING IN BED EYES CLOSED RESTING COMFORTABLY. RR EVEN AND UNLABORED. CL IN REACH
[2019-08-05 09:21] VITALS: BP 145/97
--- NOTE | 2019-08-05 18:45 | NUR ---
BEDSIDE REPORT COMPLETE. PT LYING IN BED WATCHING TV. ALERT AND ORIENTED X4. C/O LEFT SHOULDER AND BACK PAIN 9/10 SHARP THROBBING. REQUESTED PAIN MEDICATION WILL ADMINISTER OXY IR 15MG PER ORDER. NO OTHER NEEDS VOICED. CL IN REACH. FALL PRECAUTIONS IN PLACE. WILL CONTINUE TO MONITOR.
[2019-08-05 22:57] VITALS: BP 132/80
--- NOTE | 2019-08-05 23:35 | NUR ---
PT LYING IN BED SUPINE EYES CLOSED RESTING. RR EVEN AND UNLABORED. CL IN REACH
--- NOTE | 2019-08-06 03:59 | NUR ---
PT LYING IN BED ON LEFT SIDE EYES CLOSED RESTING. NO SIGNS OF ACUTE DISTRESS NOTED. CL IN REACH
[2019-08-06 07:45] LABS: BASOPHILS 0.6 % (0-2); EOSINOPHILS 4.1 % (0-7); HEMATOCRIT 35.7 % (36.0-48.0); IMMATURE GRANULOCYTES 0.2 % (0-5); LYMPHOCYTES 48.2 % (15-50); MCH 26.4 pg (26.0-34.0); MCHC 30.8 g/dL (31.0-37.0); MCV 85.6 fL (80.0-100.0); MEAN PLATELET VOLUME 9.4 fL (7.4-10.4); NEUTROPHILS 35.9 % (40-80); PLATELET COUNT 743 10x3/uL (130-400); RBC 4.17 10x6/uL (4.00-5.40); RDW 15.9 % (11.5-14.5)
[2019-08-06 07:48] LABS: WBC 11.8 10x3/uL (4.8-10.8)
--- NOTE | 2019-08-06 08:00 | NUR ---
PT RESTING IN BED WITH EYES OPEN CALL LIGHT IN REACH WILL MONITER
[2019-08-06 08:09] LABS: CALC OSMOLALITY 285 mosm/kg (275-300); CALCIUM 8.6 mg/dL (8.5-10.1); CARBON DIOXIDE 28.4 mmol/L (21.0-32.0); CHLORIDE - SERUM 107 mmol/L (98-107); CREATININE - SERUM 0.7 mg/dL (0.6-1.3); GLUCOSE 103 mg/dL (74-106); POTASSIUM - SERUM 4.2 mmol/L (3.5-5.1); SODIUM 143 mmol/L (136-145); UREA NITROGEN 15 mg/dL (7-18); eGFR NON AFRICAN AMERICAN 89 mL/min (90-120)
[2019-08-06 09:52] VITALS: BP 100/72
--- NOTE | 2019-08-06 18:46 | NUR ---
BEDSIDE REPORT COMPLETE. PT SITTING UP ON SIDE OF BED. ALERT AND ORIENTED X4. DENIES ANY NEEDS. C/O LEFT SHOULDER PAIN 5/10 ACHING. CL IN REACH. FALL PRECAUTIONS IN PLACE. WILL CONTINUE TO MONITOR
--- NOTE | 2019-08-06 22:16 | NUR ---
PT LAYING IN BED WATCHING TV, C/O ACHING PAIN TO L SHOULDER PAIN MEDS GIVEN AT MED [facility]ASS STILL 7 OF 10. WATER AND CALL LIGHT WITHIN REACH NO OTHER NEEDS NOTED.
--- NOTE | 2019-08-07 02:06 | NUR ---
PT LYING IN BED SUPINE LEFT SHOULDER PROPPED UP WITH PILLOWS. NO SIGNS OF ACUTE DISTRESS. CONTINUES ON 3L VIA NC. CL IN REACH
[2019-08-07 02:18] VITALS: BP 129/70
--- NOTE | 2019-08-07 05:04 | NUR ---
PT IN BED SLEEPING, FALL PRECAUTIONS IN PLACE, NO NEEDS NOTED.
[2019-08-07 07:30] VITALS: BP 128/69
--- NOTE | 2019-08-07 08:00 | NUR ---
C/O LEFT SHOULDER PAIN,MEDICATE FOR PAIN.IS ORIENTED X 4.SLING INTACT TO LEFT ARM.ASSESSMENT COMPLETED ,VS DONE.CL IN EASY REACH.HAS SIGNED BED ALARM WAIVER.
--- NOTE | 2019-08-07 12:00 | NUR ---
I have reviewed this patient and I concur with the Shift Assessment completed by the Licensed Practical Nurse today this shift.
--- NOTE | 2019-08-07 18:06 | NUR ---
PT ON SIDE OF BED WATCHING TV, ALARM WAIVER SIGNED AND IN CHART, PAIN MED REQUESTED AND GIVEN, NO OTHER NEEDS VERBALIZED OR NOTED
[2019-08-07 20:13] VITALS: BP 111/58
--- NOTE | 2019-08-08 04:52 | NUR ---
PT C/O PAIN L SHOULDER 12/09, GAVE MED AND ICE PACK, NO OTHER NEEDS VERBALIZED
--- NOTE | 2019-08-08 07:30 | NUR ---
POSITIONED ON BACK WITH EYES CLOSED. RESP EVEN AND UNLABORED WITH 02 OFF AT PRESENT TIME. LEFT ARM IN SLING ORDERED. CALL LIGHT IN REACH, SIDERAILS UP X 2 AND BED IN LOW LOCKED POSITION.
[2019-08-08 12:24] VITALS: BP 147/94
[2019-08-08 12:40] VITALS: BP 147/94
--- NOTE | 2019-08-08 14:15 | NUR ---
I have reviewed this patient and I concur with the Shift Assessment completed by the Licensed Practical Nurse today this shift.
--- NOTE | 2019-08-08 16:29 | NUR ---
HAS BEEN UP AMB IN [place] THIS AFTERNOON. SLING IN PLACE WITH ABDUCTOR. REQUESTED PAIN MED AND ADMINISTERED ORDERED. NO OTHER REQUESTS.
[2019-08-08 19:41] VITALS: BP 123/66
--- NOTE | 2019-08-08 23:16 | NUR ---
PT UP ON SIDE OF BED WATCHING TV, GREETED PT PLACED NAME ON BOARD NO NEEDS VERBALIZED, ALARM WAIVER, UP AD JEROD
[2019-08-09 07:19] LABS: HEMATOCRIT 36.6 % (36.0-48.0); HEMOGLOBIN 11.4 g/dL (12-16); MCH 26.5 pg (26.0-34.0); MCHC 31.1 g/dL (31.0-37.0); MCV 85.1 fL (80.0-100.0); MEAN PLATELET VOLUME 10.2 fL (7.4-10.4); PLATELET COUNT 727 10x3/uL (130-400); RDW 16.1 % (11.5-14.5); WBC 10.5 10x3/uL (4.8-10.8)
--- NOTE | 2019-08-09 07:52 | NUR ---
ALERT AND ORIENTED. EATING BREAKFAST. NO DISTRESS NOTED. CL IN REACH. RESP EVEN AND UNLABORED.
[2019-08-09 08:00] VITALS: BP 107/65
[2019-08-09] MEDS ORDERED: oxyCODONE IR PO (08:29)
[2019-08-09 08:36] LABS: CALC OSMOLALITY 278 mosm/kg (275-300); CALCIUM 8.8 mg/dL (8.5-10.1); CARBON DIOXIDE 27.7 mmol/L (21.0-32.0); CHLORIDE - SERUM 103 mmol/L (98-107); CREATININE - SERUM 0.8 mg/dL (0.6-1.3); GLUCOSE 77 mg/dL (74-106); POTASSIUM - SERUM 4.3 mmol/L (3.5-5.1); SODIUM 139 mmol/L (136-145); UREA NITROGEN 18 mg/dL (7-18); eGFR NON AFRICAN AMERICAN 76 mL/min (90-120)
[2019-08-09 09:00] LABS: EOSINOPHILS 7 % (0-7); LYMPHOCYTES 60 % (15-50); MONOCYTES 3 % (2-11); NEUTROPHILS 29 % (40-80); PLATELET ESTIMATE INCREASED
--- NOTE | 2019-08-09 12:17 | NUR ---
PARTICIPATED IN THERAPY TODAY. EATING LUNCH AT THIS TIME.
--- NOTE | 2019-08-09 15:18 | NUR ---
NO CHANGE IN ASSESSMENT. PAIN MED GIVEN. RESTING IN ROOM. CL IN REACH.
--- NOTE | 2019-08-09 19:25 | NUR ---
PT WALKING AROUND ON REHAB UNIT. DENIES NEEDS OR PAIN AT THIS TIME. BED IN LOW SIDE RAILS X2. A/O X4. LUNGS CLEAR. BOWEL ACTIVE X4. RESP EVEN AND UNLABORED. ABDUCTOR SLING TO LEFT SHOULDER. WILL CONTINUE TO MONITOR.
[2019-08-09 20:00] VITALS: BP 113/62
--- NOTE | 2019-08-10 02:25 | NUR ---
I have reviewed this patient and I concur with the Shift Assessment completed by the Licensed Practical Nurse today this shift.
--- NOTE | 2019-08-10 07:30 | NUR ---
A/A/OX4. DENIES ANY NEEDS AT THIS TIME AND VOICES NO REQUESTS. INCISION LINE C/D WITH ZIP TIES INTACT. SLING ON WITH ABDUCTOR. UP AND ABOUT AD JEROD IN [place], HAS SIGNED WAIVER FOR ALARM. CALL LIGHT IN REACH WHEN PT IS IN BED, BED IN LOW LOCKED POSITION AND SIDERAILS UP X 2.
[2019-08-10 08:03] VITALS: BP 142/87
--- NOTE | 2019-08-10 10:31 | NUR ---
PATIENT DISCHARGING HOME TODAY WITH FAMILY. PATIENT DECLINED HOME HEALTH, PATIENT CHOICE FORM SIGNED. A WRITTEN SCRIPT GIVEN TO PATIENT FOR OUTPATIENT THERAPY. [facility] FORM SIGNED AND EXPLAINED , ONE GIVEN TO PATIENT AND ONE FILED IN CHART. DR. CORRIGAN 08/11/2019 @ 2:45. DISCHARGE INSTRUCTIONS FAXED TO PCP AND REVIEWED WITH PATIENT.
--- NOTE | 2019-08-10 10:45 | NUR ---
REVIEWED DISCHARGE INSTRUCTIONS WITH PT AND VERBALIZES UNDERSTANDING WITHOUT ANY QUESTIONS. LEFT FLOOR VIA W/C AND LEFT FACILITY VIA PRIVATE VEHICLE DRIVING HERSELF EVEN AFTER INSTRUCTED TO NOT DRIVE. ALL HER PERSONAL BELONGINGS TAKEN WITH HER.
== END 2019-08-10 10:45 | disposition home or self-care (01) | DRG 948 ==
LOC: D.REHAB 16:57
PROVIDERS: ADMIT Emergency Medicine; ATTEND Emergency Medicine
DX: R53.81 Other malaise (principal); M62.50 Muscle wasting and atrophy, not elsewhere classified, unspecified site; M19.90 Unspecified osteoarthritis, unspecified site; E66.9 Obesity, unspecified; E11.9 Type 2 diabetes mellitus without complications; I10 Essential (primary) hypertension; R26.9 Unspecified abnormalities of gait and mobility; R53.83 Other fatigue; J45.909 Unspecified asthma, uncomplicated; G47.30 Sleep apnea, unspecified; F41.8 Other specified anxiety disorders; K21.9 Gastro-esophageal reflux disease without esophagitis

== ENCOUNTER 2020-08-05 16:40 | Emergency (ER) | payer MEDICARE ==
[~2020-08-05] VITALS: Ht 165.1 cm; Wt 40.9 kg
[~2020-08-05 16:40] MED LIST changes: +oxyCODONE IR PO
[2020-08-05 16:55] VITALS: Ht 165.1 cm; Wt 40.9 kg
[2020-08-05] MEDS ORDERED: VOLTAREN75 MG PO (17:31)
[2020-08-05] MEDS ORDERED: BACLOFEN20 M1 PO (17:31)
[2020-08-05 18:11] VITALS: BP 132/68
== END 2020-08-05 18:11 | disposition home or self-care (01) ==
LOC: D.ER 16:40
DX: M54.5 Low back pain (principal); G89.29 Other chronic pain; M41.9 Scoliosis, unspecified; E11.9 Type 2 diabetes mellitus without complications; I10 Essential (primary) hypertension; J44.9 Chronic obstructive pulmonary disease, unspecified; K21.9 Gastro-esophageal reflux disease without esophagitis; Z79.84 Long term (current) use of oral hypoglycemic drugs